=== PATIENT | female | born 1975 | race Two or more races ===

== ENCOUNTER 2020-07-30 14:57 | Outpatient (REF) | payer OTHER, SELFPAY ==
--- NOTE | ~2020-07-30 | MM_ITS ---
EXAMINATION: MM SCREENING DIGITAL BREAST TOMOSYNTHESIS, BILATERAL CLINICAL INFORMATION: Screening. Asymptomatic. No prior breast imaging. Age 44. Family history breast cancer, paternal aunt. The lifetime risk of breast cancer based on the Tyrer-Cuzick Model is 11%. COMPARISON: None (current study represents initial baseline exam). TECHNIQUE: Digital breast tomosynthesis is performed in both the craniocaudal and mediolateral oblique views along with computer-aided detection (CAD). Synthesized 2D images are generated from the tomosynthesis. FINDINGS: There are scattered areas of fibroglandular density (ACR BI-RADS breast composition Category b). There are no significant masses, abnormal calcifications, or other abnormalities. The axilla and skin contours are unremarkable. MM/MM tomosynthesis screening BI IMPRESSION: No mammographic evidence of malignancy. ASSESSMENT: BI-RADS 1: Negative RECOMMENDATION: Routine annual mammography screening. This patient's information was entered into a reminder system with a target due date for their next mammogram.
== END 2020-07-30 14:58 | disposition home or self-care (01) ==
LOC: HO.MAMMO 14:57
PROVIDERS: PCP Family Medicine; Visit Provider Family Medicine
DX: Z12.31 Encounter for screening mammogram for malignant neoplasm of breast (principal)
CPT/HCPCS: 77063; 77067

== ENCOUNTER 2022-12-15 12:51 | Outpatient (REF) | payer OTHER, SELFPAY ==
[2022-12-15 16:14] LABS: Basophils Percent Auto 0.6 % (0-2); Eosinophils Absolute Auto 0.1 X10*3/uL (0.0-0.4); Hematocrit 41.4 % (37.0-47.0); Hemoglobin 13.6 g/dl (12.0-16.0); Imm Gran Abs Auto 0.02 X10*3/uL (0.00-0.03); Imm Gran Pct Auto 0.4 % (0.0-0.4); Lymphocytes Absolute Auto 1.3 X10*3/uL (1.2-4.9); Lymphocytes Percent Auto 24.6 % (20-40); MANUAL DIFF FLAG SCAN; Mean Corpuscular HGB Conc 32.9 g/dl (31.0-35.0); Mean Corpuscular Volume 91.4 fL (80.0-98.0); Mean Platelet Volume 13.4 fL (9.4-12.3); Monocytes Absolute Auto 0.4 X10*3/uL (0.1-1.2); Monocytes Percent Auto 7.8 % (2-11); Neutrophils Absolute Auto 3.4 x10*3/uL (2.0-8.3); Neutrophils Percent Auto 65.6 % (45-73); Platelet Count 142 X10*3/uL (160-400); Red Blood Count 4.53 X10*6/uL (4.20-5.50); Red Cell Distribution Width 12.9 % (11.0-16.0); SCAN SMEAR FLAG 1; White Blood Count 5.1 X10*3/uL (4.8-10.8)
[2022-12-15 16:15] LABS: PLT ABN DIST 1
[2022-12-15 16:29] LABS: Estimated Average Glucose 91 mg/dL; Hemoglobin A1c % 4.8 % (<6.0)
[2022-12-15 17:00] LABS: SLIDE REVIEW VERIFIED
[2022-12-15 17:36] LABS: Alanine Aminotransferase 24 U/L (0-31); Alkaline Phosphatase 56 U/L (39-117); Anion Gap 15 (12-20); Aspartate Amino Transferase 28 U/L (5-31); Bilirubin Direct 0.2 mg/dL (0.0-0.5); Bilirubin Total 0.5 mg/dL (0.0-1.0); Blood Urea Nitrogen 11 mg/dL (9-16); Calcium 10.1 mg/dL (8.4-10.2); Carbon Dioxide 23 mmol/L (22-29); Chloride 105 mmol/L (96-108); Cholesterol 172 mg/dL (<200); Estimated Glomerular Filt Rate > 60; Glucose Random 78 mg/dL (60-115); HDL Cholesterol 55 mg/dL (>40); LDL Cholesterol Calculated 99 mg/dL (<100); Potassium 4.3 mmol/L (3.3-5.1); Sodium 139 mmol/L (135-145); Total Protein 7.9 g/dL (6.5-8.0); Triglycerides 91 mg/dL (<150)
[2022-12-15 17:38] LABS: Free T4 (Free Thyroxine) 0.94 ng/dL (0.71-1.85); Thyroid Stimulating Hormone 1.36 uIU/mL (0.32-4.0); Vitamin D 25-OH Total 39.7 ng/mL (>30)
[2022-12-16 04:09] LABS: Syphilis Screen Nonreactive (Nonreactive)
[2022-12-16 04:11] LABS: HBS Num1 0.18 mIU/mL (0-7.99); HIV AB/AG Nonreactive (Nonreactive); HIV Num 1 0.04 S/CO (0.00-0.99); ~Hepatitis B Surface Antibody NONREACTIVE (Nonreactive); ~Hepatitis C Antibody Nonreactive (Nonreactive)
[2022-12-17 13:54] LABS: Hepatitis B Viral DNA Qn - cp NOT DETECTED Log IU/mL (NOT DETECTED); Hepatitis B Viral DNA Qn-IU/mL NOT DETECTED (NOT DETECTED)
== END 2022-12-15 12:52 | disposition home or self-care (01) ==
LOC: HO.HHCL 12:51
PROVIDERS: Visit Provider Family Medicine
DX: I10 Essential (primary) hypertension (principal)
CPT/HCPCS: 36415; 80048; 80061; 80076; 82306; 83036; 84439; 84443; 85025; 86706; 86780; 86803; 87389; 87517

== ENCOUNTER 2023-01-19 14:15 | Outpatient (REF) | payer OTHER, SELFPAY ==
--- NOTE | ~2023-01-19 | MM_ITS ---
EXAMINATION: MM SCREENING DIGITAL BREAST TOMOSYNTHESIS, BILATERAL CLINICAL INFORMATION: Screening. Asymptomatic. COMPARISON: Mammography: This study is compared with prior exams dating back to 2016. TECHNIQUE: Digital breast tomosynthesis is performed in both the craniocaudal and mediolateral oblique views along with computer-aided detection (CAD). Synthesized 2D images are generated from the tomosynthesis. FINDINGS: There are scattered areas of fibroglandular density (ACR BI-RADS breast composition Category b). There are no significant masses, abnormal calcifications, or other abnormalities. MM/MM tomosynthesis screening BI IMPRESSION: No mammographic evidence of malignancy. ASSESSMENT: BI-RADS BI-RADS 1 - Negative RECOMMENDATION: Routine annual mammography screening. 1 year F/U This examination should not preclude the clinical evaluation of a suspicious palpable abnormality. This patient's information was entered into a reminder system with a target due date for their next mammogram.
== END 2023-01-19 14:16 | disposition home or self-care (01) ==
LOC: HO.MAMMO 14:15
PROVIDERS: PCP Family Medicine; Visit Provider Family Medicine
DX: Z12.31 Encounter for screening mammogram for malignant neoplasm of breast (principal)
CPT/HCPCS: 77063; 77067

== ENCOUNTER → 2023-01-19 14:30 | Outpatient (BNV) | payer OTHER, SELFPAY | PROVIDERS: PCP Family Medicine; Visit Provider Radiology Diagnostic Radiology | DX: Z12.31 Encounter for screening mammogram for malignant neoplasm of breast (principal) | CPT/HCPCS: 77063; 77067 ==

== ENCOUNTER 2023-06-02 10:49 | Outpatient (REF) | payer OTHER, SELFPAY ==
--- NOTE | ~2023-06-02 | XR_ITS ---
STUDY: Bilateral knees INDICATION: Worsening knee pain and giving out COMPARISON: 11/21/2019 TECHNIQUE: 4 views each knee FINDINGS: Right knee: Tricompartment spurring with worsening moderate medial knee and patellofemoral joint narrowings. Small suprapatellar effusion. Left knee: Tricompartment spurring, slight increase moderate medial knee and mild patellofemoral narrowings. Small suprapatellar effusion. XR/XR knee RT 3V IMPRESSION: Osteoarthritis bilateral knees, right greater than left. Bilateral small suprapatellar effusions. No acute bony pathology.
--- NOTE | ~2023-06-02 | XR_ITS ---
STUDY: Bilateral knees INDICATION: Worsening knee pain and giving out COMPARISON: 11/21/2019 TECHNIQUE: 4 views each knee FINDINGS: Right knee: Tricompartment spurring with worsening moderate medial knee and patellofemoral joint narrowings. Small suprapatellar effusion. Left knee: Tricompartment spurring, slight increase moderate medial knee and mild patellofemoral narrowings. Small suprapatellar effusion. XR/XR knee LT 4V IMPRESSION: Osteoarthritis bilateral knees, right greater than left. Bilateral small suprapatellar effusions. No acute bony pathology.
== END 2023-06-02 10:50 | disposition home or self-care (01) ==
LOC: HO.HHCX 10:49
PROVIDERS: Visit Provider Family Medicine
DX: M25.561 Pain in right knee (principal); M25.562 Pain in left knee; G89.29 Other chronic pain
CPT/HCPCS: 73562; 73564

== ENCOUNTER 2023-06-04 20:07 | Emergency (ER) | payer OTHER, SELFPAY ==
[2023-06-04 20:14] VITALS: BP 157/86; PULSE 75; RESP 18; TEMP 36.4; O2SAT 96; BMI 41.1
--- NOTE | 2023-06-04 20:54 | ED.GENADULT ---
HPI - General Adult General Chief complaint: Headache Stated complaint: headache x2 days fatigue Time Seen by Provider: 06/04/23 20:46 Source: patient Mode of arrival: ambulatory Limitations: no limitations History of Present Illness HPI narrative: 47-year-old female history of hypertension who presents emergency department for evaluation of headache, chills, nausea, fatigue and diarrhea x2 days. Patient denies any sick contacts. She states she took Tylenol and ibuprofen without any relief for symptoms. She denied rhinorrhea, sore throat, cough, chest pain, shortness of breath, dyspnea on exertion. Related Data Previous Rx's Medication Instructions Recorded ondansetron 4 mg disintegrating 4 mg PO Q6-8H PRN nausea and 06/04/23 tablet vomiting #14 tabs Allergies Allergy/AdvReac Type Severity Reaction Status Date / Time No Known Allergies Allergy Verified 06/04/23 20:16 [No Known Allergies*] Review of Systems Review of Systems: Yes all other systems are reviewed and are negative [facility] Past Medical History [facility] Narrative: Social history: She denies tobacco, alcohol and drug use Social History Social History Alcohol intake: never Smoked in Last 30 Days: No Use of substances other than those prescribed or required for medical reasons: No Advance Directives: No Advance Directives Information Provided: No Patient : No Physical Exam ED Vital Signs: Vital Signs - 24 hr 06/04/23 20:14 Temperature 97.6 F Pulse Rate 75 Respiratory Rate 18 Blood Pressure 157/86 H Pulse Oximetry 96 Oxygen Delivery Method Room Air BMI result Body Mass Index 41.1 Vital signs did reveal an elevated blood pressure otherwise Exam: General: Awake, alert in no distress Head: Normocephalic, atraumatic EENT: PERRL, Lids normal, sclera normal, conjunctiva normal, nose normal , ears normal, throat without erythema or exudates Neck: Supple, no adenopathy Lung: breath sounds symmetric, no wheezing, rales or rhonchi Chest: symmetric movement, nontender Heart: regular rate and rhythm, normal S1, S2 no murmurs or rubs Abdomen: soft, non-tender, nondistended, normal bowel sounds Back: no vertebral tenderness, no CVAT Extremities: no deformities, moves all extremities symmetrically Neuro: Awake, alert, oriented, normal speech, cranial nerves intact, moves all extremities symmetrically Psych: Pleasant, cooperative Medications Administered Discontinued Medications Generic Name Dose Route Start Last Admin Trade Name Osvaldo PRN Reason Stop Dose Admin Ibuprofen 400 mg 06/04/23 20:54 06/04/23 21:01 Ibuprofen 400 Mg Tablet PO 06/04/23 20:55 400 mg ONCE STA Administration Ondansetron HCl 4 mg 06/04/23 20:54 06/04/23 21:01 Ondansetron Odt 4 Mg Tab.Kevindis TRANSLINGU 06/04/23 20:55 4 mg ONCE STA Administration Medical Decision Making Medical Decision Making MDM Narrative: 47-year-old female history of hypertension who presents emergency department for evaluation of headache, chills, nausea, fatigue and diarrhea x2 days. Patient took Tylenol and ibuprofen not relieve her symptoms. Vital signs did reveal elevated blood pressure otherwise unremarkable. Physical examination was unremarkable as well. Differential diagnosis: ?Includes but is not limited to viral syndrome, pharyngitis, COVID-19, influenza, RSV Following evaluation was ordered: COVID-19, influenza, RSV, rapid strep Patient was initially treated with the following: Zofran 4 mg ODT, Ativan 40 mg orally Course: 21:07 My independent interpretation patient's laboratory evaluation as follows: Influenza, RSV and rapid strep were negative Patient's presentation is consistent with acute viral syndrome. Patient was given prescriptions for Zofran ODT and advised to take Tylenol ibuprofen. She was also advised to stay on a STEVEN diet and increase your fluid intake She was given a work note, printed instructions and discharged Admission/Observation Consideration of admission/observation: Escalation of care including admission/observation considered Lab Data [facility] Lab Attestation statement: I reviewed the patient's lab results. Labs: Lab Results 06/04/23 06/04/23 Range/Units 20:20 20:45 Influenza Type A (PCR) NEGATIVE (Negative) Influenza Type B (PCR) NEGATIVE (Negative) RSV RNA Qual (PCR) NEGATIVE (Negative) SARS-CoV-2 RNA (RT-PCR) NEGATIVE (Negative) S. pyogenes GrpA ALFERDO Negative (Negative) Independent Historian Clinical information obtained from an independent historian. History obtained from or confirmed by: Other (Fiancee) Prescription Management I considered prescription management with: Other (Antiemetic) Discharge Plan Discharge Clinical Impression: Viral syndrome, Nausea Patient Disposition: Home, Self-Care Instructions: Viral Syndrome (ED) Additional Instructions: Your COVID-19, RSV and influenza virus tests were negative Rapid strep test was negative. Your symptoms are consistent with a viral infection. Take Zofran ODT 4 mg pills, 1 pill dissolved in your mouth every 8 hours as needed for nausea and vomiting. Take ibuprofen 200 mg pills, 2 pills every 6 hours as needed for pain or fever. Take Tylenol (acetaminophen) 500 mg pills, 2 pills every 6 hours as needed for pain or fever. Follow-up with your doctor in 2 days. Please return to the emergency department if your symptoms get worse or if you develop any symptoms that are concerning to you. Please see the work note. Prescriptions: New ondansetron 4 mg tablet,disintegrating 4 mg PO Q6-8H PRN (Reason: nausea and vomiting) Qty: 14 0RF Stand Alone Forms: Work/School Release
[2023-06-04 20:57] LABS: IDNOW Serial# 58CA691E; Strep A Nucleic Acid Negative (Negative)
[2023-06-04] MEDS: Ibuprofen 400 MG TABLET PO (21:01)
[2023-06-04] MEDS: Ondansetron ODT 4 MG TAB.RAPDIS TRANSLINGU (21:01)
[2023-06-04 21:03] LABS: Influenza A PCR NEGATIVE (Negative); Influenza B PCR NEGATIVE (Negative); Resp Syncy Virus RNA Qual PCR NEGATIVE (Negative); SARS COV2 PCR INHOUSE NEGATIVE (Negative)
[2023-06-04 21:46] VITALS: BP 131/86; PULSE 65; RESP 20; TEMP 36.5; O2SAT 97
[2023-06-04 21:54] VITALS: BP 131/86; PULSE 65; RESP 20; TEMP 36.5; O2SAT 97
== END 2023-06-04 21:56 | disposition home or self-care (01) ==
PROVIDERS: Physician Assistant Medical; Emergency Provider Emergency Medicine Emergency Medical Services
DX: B34.9 Viral infection, unspecified (principal); R11.0 Nausea; I10 Essential (primary) hypertension; Z03.818 Encounter for observation for suspected exposure to other biological agents ruled out
CPT/HCPCS: 0241U; 87651; 99283; 99284

== ENCOUNTER 2023-06-16 11:20 | Outpatient (REF) | payer OTHER, SELFPAY ==
--- NOTE | ~2023-06-16 | US_ITS ---
EXAMINATION: US PELVIS CLINICAL INFORMATION: Irregular menstrual bleeding. COMPARISON: Pelvic ultrasound 08/21/2012. TECHNIQUE: Ultrasound of the pelvis is performed using both transabdominal and transvaginal transducers along with Doppler. Transvaginal imaging is performed due to inadequate visualization transabdominally. FINDINGS: Uterus: The uterus is anteverted and measures 9.8 x 3.7 x 5.2 cm. The double wall endometrial thickness is 13 mm. There is an endometrial polyp measuring 6 x 6 x 4 mm. On the 08/21/2012 pelvic ultrasound, an 11 x 9 x 10 mm endometrial polyp was seen. The uterus is smooth in contour and has normal myometrial echogenicity. No visible fibroid. Nabothian cysts are present, the largest measuring 0.9 cm. Adnexa: Both ovaries are visualized. There is normal color flow to the adnexa. There is no ovarian torsion. There is no pelvic ascites or fluid collection. Right ovary measures 2.7 x 1.3 x 1.7 cm for a volume of 3.1 mL which includes a 1.2 cm corpus luteal cyst. Left ovary measures 3.5 x 4.3 x 3.9 cm for a volume of 31 mL which includes a complex cyst with septations measuring 3.2 x 3.5 x 3.1 cm. US/US pelvic and transvaginal IMPRESSION: 1. Endometrial polyp as described above. 2. Complex left ovarian cyst. Follow-up ultrasound in 6-12 weeks is recommended.
== END 2023-06-16 11:21 | disposition home or self-care (01) ==
LOC: HO.US 11:20
PROVIDERS: PCP Family Medicine; Visit Provider Family Medicine
DX: N93.9 Abnormal uterine and vaginal bleeding, unspecified (principal)
CPT/HCPCS: 76830; 76856

== ENCOUNTER 2023-06-23 08:47 | Outpatient (AMB) | payer OTHER, SELFPAY ==
[2023-06-23 08:50] VITALS: BMI 41.1
--- NOTE | 2023-06-23 08:50 | MHC.OFFVIS ---
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 The patient describes her pains as severe in nature, /. Her pains have gotten worse over the last few years in spite of continued non operative treatments. She has had multiple cortisone injections. The most recent injection gave her minimal relief. She has also tried Tylenol, anti-inflammatory medicines, massage therapy and a knee brace which gave her only mild relief. She would like to hold off on surgery for as long as possible. She has done physical therapy which aggravated her pain. 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 Physical Exam Vital Signs: BMI result Body Mass Index 41.1 Const Other: Well-nourished well-developed very friendly female awake alert and oriented x3 in no acute distress Extrem Other: Bilateral lower extremity examination shows good capillary refill, no skin lesions noted, normal sensation light touch Bilateral knee examination shows minimal effusions, palpable crepitus with range of motion, pain with range of motion, range of motion from -3 degrees to 115 degrees, no instability Results Reviewed Results Reviewed: X-rays of the patient's bilateral knee show joint space narrowing, subchondral sclerosis, osteophyte formation, no acute bony abnormalities Assessment & Plan Assessment & Plan (1) Arthritis of left knee: Code(s): M17.12 - Unilateral primary osteoarthritis, left knee Category: Medical (2) Arthritis of right knee: Code(s): M17.11 - Unilateral primary osteoarthritis, right knee Category: Medical Plan Ms. Don Hernandez presents with progressively worsening bilateral knee pains due to degenerative joint disease. I had a lengthy discussion with the patient regarding the treatment options. She wishes to hold off on surgery for as long as possible. I agree with plan. She has had cortisone injections in the past which gave her minimal relief. Thus, I will see whether or not the patient's insurance company will cover a viscosupplementation injection for both of her knees. I will see her back once the injections are available. Feel free to call me at any time should questions regarding her orthopedic management arise. I spent 22 minutes in reviewing the patient's records and imaging studies, seeing the patient and documenting in the medical record. Medications: Discontinued ondansetron Discontinued Reason: Patient no longer taking 4 mg PO Q6-8H PRN 14 tabs 0RF nausea and vomiting
== END 2023-06-23 09:27 | disposition home or self-care (01) ==
PROVIDERS: Visit Provider Orthopaedic Surgery
DX: M17.0 Bilateral primary osteoarthritis of knee (principal)
CPT/HCPCS: 99203

== ENCOUNTER → 2023-06-23 08:47 | Outpatient (BNVA) | payer OTHER, SELFPAY | PROVIDERS: Visit Provider Orthopaedic Surgery ==

== ENCOUNTER 2023-06-30 07:54 | Outpatient (AMB) | payer OTHER, SELFPAY ==
--- NOTE | 2023-06-30 08:03 | MHC.OFFVIS ---
Vital Signs 06/30/23 08:06 Height 5 ft 2 in Weight 224 lb 13.944 oz BMI 41.1 BP 105/68 Blood Pressure Location Lt brachial Position Sitting Pulse 67 Intake Visit Reasons: Colonoscopy Screening Intake Note: Martha presents in the office as a colonoscopy screening. CC: She is here because she is due for a colonoscopy. Threat Monitoring Analyst Required: No Allergies No Known Allergies [No Known Allergies*] Allergy (Verified 06/30/23 08:06) Medication List - Last Reconciled 06/30/23 by Erin Sylvester PA-C cholecalciferol (vitamin D3) 50 mcg PO DAILY diclofenac sodium 1% topical hydrochlorothiazide 25 mg PO DAILY lisinopril 5 mg PO DAILY HPI Comments Details: A 47 y/o female referred for index screening colon No family hx- GI cancers No GI complaints Appetite is good BM most days- no issues No resiratory or cardiac- issues No N/V/D-abd pain- fever or chills PFSH Surgical History Hx of section Family History (Updated 06/30/23 @ 08:06 by ABDIAS Darnell) Maternal Grandfather Colon cancer Social History Alcohol intake: never Patient Tobacco Use Status: Never used Tobacco Current occupational status: employed 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, 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 Review of Systems Const All systems reviewed & are unremarkable except as noted in HPI and below Physical Exam Vital Signs: Last Vital Signs Pulse 67 06/30/23 08:06 BP 105/68 06/30/23 08:06 BMI result Body Mass Index 41.1 Const General: cooperative, healthy appearing, comfortable and no acute distress Orientation/consciousness: patient oriented x3 Limitations: no limitations Eyes Sclerae: sclerae normal Resp Effort & Inspection: normal respiratory effort and able to speak in complete sentences Auscultation: clear to auscultation bilaterally, no rales, no rhonchi and no wheezes Cardio Rate: regular rate Rhythm: regular rhythm Heart sounds: S1 normal heart sound present and S2 normal heart sound present GI Inspection: Yes obesity Palpation (GI): Soft to palpation and nontender Auscultation: normal bowel sounds Skin General skin exam: no rashes or lesions noted Neuro General: patient oriented x3 Extrem General: Yes full ROM Psych Appearance: grossly normal and well kempt Mental Status: mental status grossly normal Speech and movement: Normal speech and movement present and Clear speech present Attitude: cooperative Thought process: Normal thought process present Thought content: Normal thought content present Insight: Good insight present (Psych) Judgement: Good judgement present (Psych) Assessment & Plan Assessment & Plan (1) Encounter for screening colonoscopy: Comment: No c/o discussed procedure/ rare risks- anesthesia- need for escort Code(s): Z12. - Encounter for screening for malignant neoplasm of colon Category: Medical Plan: index screen Plan BMI: 41.1kg/m? Orders: Orders Colonoscopy - GI Use Only Today Z12. - Encounter for screening for malignant neoplasm of colon Medications: New bisacodyl (Dulcolax (bisacodyl)) Day before procedure @ 12 noon Take 4 tablets by mouth followed by large glass of water 20 mg (4 x 5 mg) PO ONCE 1 day PRN 4 tabs 0RF colonoscopy prep Z12. - Encounter for screening for malignant neoplasm of colon polyethylene glycol 3350 (Miralax) Take as directed by mouth the day before your procedure. 238 grams PO ONCE 1 day PRN 238 grams 0RF laxative effect Patient Instructions: Pleasant 47 y/o female - age appropriate for index screening colonoscopy discussed procedure/ rare risks- anesthesia- need for escort MG prep- reviewed- literature given Encoraged to call with questions or concerns Coding Level of Care Code New Pt Level 3 (90556) Diagnoses Encounter for screening colonoscopy Z12. Time Spent (min) 20
[2023-06-30 08:06] VITALS: BP 105/68; PULSE 67; BMI 41.1
== END 2023-06-30 09:02 | disposition home or self-care (01) ==
PROVIDERS: PCP Family Medicine; Visit Provider Physician Assistant
DX: Z12.11 Encounter for screening for malignant neoplasm of colon (principal); Z01.818 Encounter for other preprocedural examination
CPT/HCPCS: 99203

== ENCOUNTER → 2023-06-30 07:54 | Outpatient (BNVA) | payer OTHER, SELFPAY | PROVIDERS: PCP Family Medicine; Visit Provider Physician Assistant ==

== ENCOUNTER 2023-07-19 20:32 | Emergency (ER) | payer OTHER, SELFPAY ==
[2023-07-19 20:34] VITALS: BP 148/80; PULSE 69; RESP 18; TEMP 36.8; O2SAT 98; BMI 39.3
--- NOTE | 2023-07-19 20:37 | ED_ITS ---
HPI - General Adult General Chief complaint: General Medical Stated complaint: Hemorroids/burning Time Seen by Provider: 07/20/23 00:36 Source: patient Mode of arrival: ambulatory Limitations: no limitations History of Present Illness HPI narrative: 47 yo female with PMH of HTN and hemorrhoids who notes her hemorrhoids were bothering her no straining they just felt sore so she tried preparation yesterday and now she has burning and pain in the rectal area and she cannot get comfortable no n/v/d no fevers no diarrhea. She has pain and cannot sit. She does not feel a mass. She just notes the skin is very sensitive and painful particularly on the left side. MD complaint: rectal pain Onset (ago): day(s) (1) Location: genitals Radiation: non-radiation Severity: moderate Quality: burning Pain Consistency: constant Relieving factors: none Exacerbating factors: other (sitting or touching the area) Associated symptoms: denies other symptoms Treatments prior to arrival: other (preparation H made it worse) Related Data Home Medications ?Medication ?Instructions ?Recorded ?Confirmed cholecalciferol (vitamin D3) 50 50 mcg PO DAILY 06/23/23 06/30/23 mcg (2,000 unit) capsule hydrochlorothiazide 25 mg tablet 25 mg PO DAILY 06/23/23 06/30/23 lisinopril 5 mg tablet 5 mg PO DAILY 06/23/23 06/30/23 diclofenac sodium 1 % topical gel topical 06/30/23 06/30/23 Previous Rx's ?Medication ?Instructions ?Recorded bisacodyl 5 mg tablet,delayed 20 mg (4 x 5 mg) PO ONCE PRN 06/30/23 release (Dulcolax (bisacodyl)) colonoscopy prep 1 day #4 tabs polyethylene glycol 3350 17 238 g PO ONCE PRN laxative effect 06/30/23 gram/dose oral powder (Miralax) 1 day #238 grams amoxicillin 875 mg-potassium 1 tab PO BID #14 tabs 07/20/23 clavulanate 125 mg tablet hydrocodone 5 mg-acetaminophen 325 1 tab PO Q6H PRN pain #10 tabs 07/20/23 mg tablet Allergies Allergy/AdvReac Type Severity Reaction Status Date / Time No Known Allergies Allergy Verified 07/19/23 20:37 [No Known Allergies*] Review of Systems Review of Systems: Constitutional : No Fever, No Chills, No Fatigue ENT/Mouth : No sore throat, No Rhinorrhea Eyes: No Eye Pain, No Swelling, No Redness Cardiovascular : No Chest Pain, No SOB, No Dyspnea on Exertion Respiratory : No Cough, No Sputum Gastrointestinal : No Nausea, No Vomiting, No Diarrhea, No abdominal Pain, pos rectal pain Genitourinary : No Dysuria, No Urinary Frequency, No Hematuria, Musculoskeletal : No joint pain, No Myalgias, No Joint Swelling Skin : No Skin Lesions, No rash Neuro : No Weakness, No Numbness, No Dizziness, no Headache Psych : No Anxiety/Panic, No Depression Heme/Lymph: No Bruising, No Bleeding,No Lymphadenopathy Endocrine : No Polyuria, No Polydipsia All other systems reviewed and are negative [facility] Past Medical History Attestation statement: The following information was validated with the patient. 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 Oriented X3. No acute distress. Eyes: Pupils equal, round and reactive to light. ENT: Pharynx normal. Neck: Normal inspection. Neck supple. CVS: Normal heart rate and rhythm. Pulses normal. Respiratory: No respiratory distress. Breath sounds normal. Abdomen: Soft and nontender. 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 but she reports pain I do not feel a mass. she is on her menses and there is blood from her vagina due to female pad use. Skin: Skin warm and dry. Normal skin color. Normal skin turgor. Extremities: No lower extremity edema. No calf ttp Neuro: Oriented X 3. No motor deficit. No sensory deficit. Course Course Course Narrative: RmE: Triage done by BEBA Douglass 47-year-old female presents to ED for hemorrhoid rectal/burning pain. Patient denies any blood in his stool or recent trauma. Will be evaluated [facility]. Medications Administered Discontinued Medications Generic Name Dose Route Start Last Admin Trade Name Freq PRN Reason Stop Dose Admin Cephalexin HCl 500 mg 07/20/23 00:51 07/20/23 01:14 Cephalexin 500 Mg Capsule PO 07/20/23 00:52 500 mg ONCE ONE Administration Morphine Sulfate 15 mg 07/20/23 00:51 07/20/23 01:14 Morphine Sulfate Immed Release 15 Mg Tablet PO 07/20/23 00:52 15 mg ONCE ONE Administration Medical Decision Making Medical Decision Making MDM Narrative: 47 yo female with hx of HTN not a diabetic here with rectal burning and pain after using preparation H she is not constipation does not have hard stools she notes her rectal mucosa is very sensitive to touch she has no vesicles no abscess on exam no mass felt no or GI symptoms it is somewhat odd presentation unsure if this is reaction to the preparation H. She is sensitive to light touch but no mass felt - given symptoms would start on medications for proctitis and pain medications. Differential Diagnosis Differential Diagnoses: The differential diagnosis associated with the presentation includes rectal pain, hemorrhoids, proctitis Independent Historian Clinical information obtained from an independent historian. History obtained from or confirmed by: Spouse External Record Review External record reviewed: Office record Prescription Management I considered prescription management with: Pain Medication and Antibiotic Discharge Plan Discharge Clinical Impression: Anal or rectal pain Patient Disposition: Home, Self-Care Instructions: Sitz Bath (DC), Rectal Pain (ED) Additional Instructions: exam did not show engorged hemorrhoids and there was no abscess felt. given pain and degree of sensitivity I am going to start on pain medications and antibiotics in case of inflammation of the rectal area. if worsening symptoms or fevers/pain change in stools please seek immediate attention. Prescriptions: New hydrocodone-acetaminophen 5-325 mg tablet 1 tab PO Q6H PRN (Reason: pain) Qty: 10 0RF Rx Instructions: partial fill okay; Partial Fill upon patient request. amoxicillin-pot clavulanate 875-125 mg tablet 1 tab PO BID Qty: 14 0RF No Action diclofenac sodium 1 % gel topical bisacodyl [Dulcolax (bisacodyl)] 5 mg tablet,delayed release (DR/EC) 20 mg PO ONCE PRN (Reason: colonoscopy prep) 1 Days Qty: 4 0RF Rx Instructions: Day before procedure @ 12 noon Take 4 tablets by mouth followed by large glass of water polyethylene glycol 3350 [Miralax] 17 gram/dose powder 238 g PO ONCE PRN (Reason: laxative effect) 1 Days Qty: 238 0RF Rx Instructions: Take as directed by mouth the day before your procedure. hydrochlorothiazide 25 mg tablet 25 mg PO DAILY lisinopril 5 mg tablet 5 mg PO DAILY cholecalciferol (vitamin D3) 50 mcg (2,000 unit) capsule 50 mcg PO DAILY Stand Alone Forms: Work/School Release Interventions: ED Discharge Assessment Last Done: 07/20/23 01:19 Discharge Date/Time: 07/20/23 01:19 Print Language: [place]
[2023-07-20 00:21] VITALS: BP 126/72; PULSE 79; RESP 17; TEMP 36.3; O2SAT 98
[2023-07-20] MEDS: Morphine Sulfate Immed Release 15 MG TABLET PO (01:14)
[2023-07-20] MEDS: cephALEXin 500 MG CAPSULE PO (01:14)
--- NOTE | 2023-07-20 01:15 | PC.NURSE ---
pt c/o 9/10 pain from rectum. medication administered per provider order. effectiveness pending.
[2023-07-20 01:19] VITALS: BP 126/72; PULSE 79; RESP 17; TEMP 36.3; O2SAT 98
== END 2023-07-20 01:19 | disposition home or self-care (01) ==
PROVIDERS: Emergency Provider Emergency Medicine
DX: K62.89 Other specified diseases of anus and rectum (principal)
CPT/HCPCS: 99283

== ENCOUNTER 2023-08-03 13:19 | Outpatient (AMB) | payer OTHER, SELFPAY ==
[2023-08-03 13:21] VITALS: BMI 39.3
--- NOTE | 2023-08-03 13:21 | A.OFFVIS_ITS ---
Vital Signs 08/03/23 13:21 Height 5 ft 2 in Weight 215 lb BMI 39.3 Intake Visit Reasons: Bilateral Knee Euflexxa #1 Intake Note: Martha is a 47 year old female who presents with complaints of progressively worsening bilateral knee pains. The patient describes her pains as severe in nature, 10/10. Her pains have gotten worse over the last few years in spite of continued non operative treatments. She has had multiple cortisone injections. The most recent injection gave her minimal relief. She has also tried Tylenol, anti-inflammatory medicines, massage therapy and a knee brace which gave her only mild relief. She would like to hold off on surgery for as long as possible. She has done physical therapy which aggravated her pain. Allergies No Known Allergies [No Known Allergies*] Allergy (Verified 08/03/23 13:31) Medication List - Last Reconciled 08/04/23 by Temo Maradiaga MD amoxicillin-pot clavulanate 875-125 mg 1 tab PO BID bisacodyl (Dulcolax (bisacodyl)) 20 mg (4 x 5 mg) PO ONCE PRN 1 day cholecalciferol (vitamin D3) 50 mcg PO DAILY diclofenac sodium 1% topical hydrochlorothiazide 25 mg PO DAILY hydrocodone-acetaminophen 5-325 mg 1 tab PO Q6H PRN lisinopril 5 mg PO DAILY polyethylene glycol 3350 (Miralax) 238 grams PO ONCE PRN 1 day PFSH Medical History (Updated 08/04/23 @ 07:58 by Temo Maradiaga MD) Arthritis of right knee Arthritis of left knee Surgical History Hx of section Family History Maternal Grandfather Colon cancer Social History Alcohol intake: never Patient Tobacco Use Status: Never used Tobacco Current occupational status: employed 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, 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 Physical Exam Vital Signs: BMI result Body Mass Index 39.3 Const Other: Well-nourished well-developed very friendly female awake alert and oriented x3 in no acute distress Extrem Other: Bilateral lower extremity examination shows good capillary refill, no skin lesions noted, normal sensation light touch Bilateral knee examination shows minimal effusions, palpable crepitus with range of motion, pain with range of motion, no instability Office Procedures Joint Injection/Drain Joint Injection/Drain Primary Site: left knee Prep: site was prepped using aseptic technique Injected: 20 mg of (Euflexxa viscosupplementation) and 1% plain lidocaine Procedure: The patient tolerated the procedure well Coding 87302 - Large joint Procedure code (CPT) selection complete Joint Injection/Drain Joint Injection/Drain Primary Site: right knee Prep: site was prepped using aseptic technique Injected: 20 mg of (Euflexxa viscosupplementation) and 1% plain lidocaine Procedure: The patient tolerated the procedure well Coding 00942 - Large joint Procedure code (CPT) selection complete Results Reviewed Results Reviewed: X-rays of the patient's bilateral knee show joint space narrowing, subchondral sclerosis, no acute bony abnormalities Assessment & Plan Assessment & Plan (1) Arthritis of right knee: Code(s): M17.11 - Unilateral primary osteoarthritis, right knee Category: Medical (2) Arthritis of left knee: Code(s): M17.12 - Unilateral primary osteoarthritis, left knee Category: Medical Plan Ms. Don Hernandez presents with bilateral knee pains due to degenerative joint disease. I had a lengthy discussion with the patient regarding the treatment options. She wishes to hold off on surgery for as long as possible. I agree with this plan. The risks and benefits of a series of Euflexxa viscosupplementation injections were discussed at length with the patient. She wished to proceed. She tolerated the bilateral knee injections well. She will continue with her activity modifications. She will follow up next week as scheduled. Feel free to call me at any time should questions regarding her orthopedic management arise. I spent 21 minutes in reviewing the patient's records and imaging studies, seeing the patient and documenting in the medical record. Orders: Orders AMB Joint Injection/Aspiration 08/03/23 Z12.11 - Encounter for screening for malignant neoplasm of colon AMB Joint Injection/Aspiration 08/03/23 M17.11 - Unilateral primary osteoarthritis, right knee Coding Level of Care Code Est Pt Level 3 (48492) Diagnoses Arthritis of right knee M17.11 Arthritis of left knee M17.12 CPT Codes Coding - 14880 Large joint: 37821 - Large joint ([id number]) Coding - 82363 Large joint: 54307 - Large joint ([id number])
== END 2023-08-03 14:02 | disposition home or self-care (01) ==
PROVIDERS: Visit Provider Orthopaedic Surgery
DX: M17.0 Bilateral primary osteoarthritis of knee (principal)
CPT/HCPCS: 20610; 99213

== ENCOUNTER → 2023-08-03 13:19 | Outpatient (BNVA) | payer OTHER, SELFPAY | PROVIDERS: Visit Provider Orthopaedic Surgery | DX: M17.0 Bilateral primary osteoarthritis of knee (principal) | CPT/HCPCS: 20610; J7323 ==

== ENCOUNTER 2023-08-10 14:28 | Outpatient (AMB) | payer OTHER, SELFPAY ==
--- NOTE | 2023-08-10 14:31 | A.OFFVIS_ITS ---
Intake Visit Reasons: Bilateral Knee Euflexxa #2 Intake Note: Martha is a 47 year old female who presents today for her second euflexxa gel injection. Patient has noticed a little relief from the 1st injection. She denies any fevers or chills. 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 Don Hernandez presents with bilateral knee pains due to degenerative joint disease a lengthy discussion with the patient regarding the treatment options. The risks and benefits of a 2nd set of Euflexxa injections were discussed at length with the patient. The patient wished to proceed. She tolerated the injections well. She will continue with her home exercise program. She will follow up next week as scheduled. Feel free to call me at any time should questions regarding her orthopedic management arise. Orders: Orders AMB Joint Injection/Aspiration Today M17.12 - Unilateral primary osteoarthritis, left knee AMB Joint Injection/Aspiration Today M17.11 - Unilateral primary osteoarthritis, right knee Coding Level of Care Code Procedure Only Diagnoses Arthritis of left knee M17.12 Arthritis of right knee M17.11
== END 2023-08-10 15:01 | disposition home or self-care (01) ==
PROVIDERS: Visit Provider Orthopaedic Surgery
DX: M17.0 Bilateral primary osteoarthritis of knee (principal)
CPT/HCPCS: 20610

== ENCOUNTER → 2023-08-10 14:28 | Outpatient (BNVA) | payer OTHER, SELFPAY | PROVIDERS: Visit Provider Orthopaedic Surgery | DX: M17.0 Bilateral primary osteoarthritis of knee (principal) | CPT/HCPCS: 20610; J7323 ==

== ENCOUNTER 2023-08-17 14:14 | Outpatient (AMB) | payer OTHER, SELFPAY ==
--- NOTE | 2023-08-17 14:15 | MHC.OFFVIS ---
Vital Signs 08/17/23 14:17 Height 5 ft 2 in Weight 215 lb BMI 39.3 Intake Visit Reasons: Bilateral Knee Euflexxa #3 Intake Note: Martha is a 47 year old female who presents today for her third Bilateral Knee Euflexxa #3. She states that she has gotten mild relief from the 1st 2 injections. She denies any fevers or chills. Allergies No Known Allergies [No Known Allergies*] Allergy (Verified 08/17/23 14:18) Medication List - Last Reconciled 08/18/23 by Temo Maradiaga MD cholecalciferol (vitamin D3) 50 mcg PO DAILY diclofenac sodium 1% topical hydrochlorothiazide 25 mg PO DAILY hydrocodone-acetaminophen 5-325 mg 1 tab PO Q6H PRN lisinopril 5 mg PO DAILY PFSH Medical History Arthritis of right knee Arthritis of left knee Surgical History Hx of section Family History Maternal Grandfather Colon cancer Social History Alcohol intake: never Patient Tobacco Use Status: Never used Tobacco Current occupational status: employed 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, 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 Physical Exam Vital Signs: BMI result Body Mass Index 39.3 Extrem Other: Bilateral knee examination shows minimal effusions, palpable crepitus with range of motion, pain with range of motion, no instability Office Procedures Joint Injection/Drain Joint Injection/Drain Primary Site: left knee Prep: site was prepped using aseptic technique Injected: 20 mg of (Euflexxa viscosupplementation) and 1% plain lidocaine Procedure: The patient tolerated the procedure well Coding 30121 - Large joint Procedure code (CPT) selection complete Joint Injection/Drain Joint Injection/Drain Primary Site: right knee Prep: site was prepped using aseptic technique Injected: 20 mg of (Euflexxa viscosupplementation) and 1% plain lidocaine Procedure: The patient tolerated the procedure well Coding 56348 - Large joint Procedure code (CPT) selection complete Results Reviewed Results Reviewed: X-rays of the patient's bilateral knee show joint space narrowing, subchondral sclerosis, no acute bony abnormalities Assessment & Plan Assessment & Plan (1) Arthritis of left knee: Code(s): M17.12 - Unilateral primary osteoarthritis, left knee Category: Medical (2) Arthritis of right knee: Code(s): M17.11 - Unilateral primary osteoarthritis, right knee Category: Medical Plan Ms. Vinicius Hernandez presents with bilateral knee pains due to degenerative joint disease. The risks and benefits of a 3rd set of Euflexxa viscosupplementation injections were discussed at length with the patient. The patient wished to proceed. She tolerated the injections well. She will continue with her home exercise program. She will follow up with me on an as-needed basis should her symptoms not plateau at an unacceptable level over the next few months. Feel free to call me at any time should questions regarding her orthopedic management arise. I spent 20 minutes in reviewing the patient's records and imaging studies, seeing the patient and documenting in the medical record. Orders: Orders AMB Joint Injection/Aspiration 08/17/23 M17.12 - Unilateral primary osteoarthritis, left knee AMB Joint Injection/Aspiration 08/17/23 M17.11 - Unilateral primary osteoarthritis, right knee Coding Level of Care Code Procedure Only Diagnoses Arthritis of left knee M17.12 Arthritis of right knee M17.11 CPT Codes Coding - 21149 Large joint: 68079 - Large joint ([id number]) Coding - 64385 Large joint: 94566 - Large joint ([id number])
[2023-08-17 14:17] VITALS: BMI 39.3
== END 2023-08-17 14:56 | disposition home or self-care (01) ==
PROVIDERS: Visit Provider Orthopaedic Surgery
DX: M17.0 Bilateral primary osteoarthritis of knee (principal)
CPT/HCPCS: 20610

== ENCOUNTER → 2023-08-17 14:14 | Outpatient (BNVA) | payer OTHER, SELFPAY | PROVIDERS: Visit Provider Orthopaedic Surgery | DX: M17.0 Bilateral primary osteoarthritis of knee (principal) | CPT/HCPCS: 20610; J7323 ==

== ENCOUNTER 2023-10-20 11:02 | Outpatient (REF) | payer OTHER, SELFPAY ==
--- NOTE | ~2023-10-20 | US_ITS ---
EXAMINATION: US PELVIS CLINICAL INFORMATION: Follow-up complex left ovarian cyst. COMPARISON: None available. TECHNIQUE: Ultrasound of the pelvis is performed using both transabdominal and transvaginal transducers along with Doppler. Transvaginal imaging is performed due to inadequate visualization transabdominally. FINDINGS: Uterus: The uterus is anteverted and measures 9.3 x 4.9 x 6.2 cm. Complex nabothian cysts are present. The double wall endometrial thickness is 16 mm. An endometrial polyp is present measuring 6.4 x 5 mm (previously 6 x 6.4 mm). The uterus is smooth in contour and has normal myometrial echogenicity. No visible fibroid. Adnexa: Both ovaries are visualized. There is normal color flow to the adnexa. There is no ovarian torsion. There is no pelvic ascites or fluid collection. Right ovary measures 3.3 x 2.6 x 2.3 cm for a volume of 10.3 mL and contains a corpus luteal cyst measuring 1.7 cm. Left ovary measures 3.8 x 2.6 x 1.4 cm for a volume of 7.2 mL which includes a 1 cm benign-appearing cyst. The previously seen 3.5 cm complex left ovarian cyst has resolved. US/US pelvic and transvaginal IMPRESSION: 1. Resolved complex left ovarian cyst. 2. Small endometrial polyp. Electronically signed by: Deo Sims MD 11/10/2023 09:58 PM EDT
== END 2023-10-20 11:03 | disposition home or self-care (01) ==
LOC: HO.US 11:02
PROVIDERS: PCP Family Medicine; Visit Provider Family Medicine
DX: N83.202 Unspecified ovarian cyst, left side (principal)
CPT/HCPCS: 76830; 76856

== ENCOUNTER 2023-11-17 14:16 | Outpatient (AMB) | payer OTHER, SELFPAY ==
[2023-11-17 14:19] VITALS: BMI 39.3
--- NOTE | 2023-11-17 14:19 | A.OFFVIS_ITS ---
Vital Signs 11/17/23 14:19 Height 5 ft 2 in Weight 215 lb BMI 39.3 Intake Visit Reasons: OV-B/L knee injection follow up Intake Note: Martha is a 48 year old female who presents with complaints of mild intermittent discomfort in both of her knees after undergoing a series of Euflexxa viscosupplementation injections for both of her knees earlier this year. She does not take any medicines for discomfort. She continues with her home exercise program. She denies any locking or giving way. Allergies No Known Allergies [No Known Allergies*] Allergy (Verified 11/17/23 14:22) Medication List - Last Reconciled 11/17/23 by Temo Maradiaga MD cholecalciferol (vitamin D3) 50 mcg PO DAILY diclofenac sodium 1% topical hydrochlorothiazide 25 mg PO DAILY hydrocodone-acetaminophen 5-325 mg 1 tab PO Q6H PRN lisinopril 5 mg PO DAILY PFSH Medical History Arthritis of right knee Arthritis of left knee Surgical History Hx of section Family History Maternal Grandfather Colon cancer Social History Alcohol intake: never Patient Tobacco Use Status: Never used Tobacco Current occupational status: employed 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, 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 Physical Exam Vital Signs: BMI result Body Mass Index 39.3 Const Other: Well-nourished well-developed very friendly female awake alert and oriented x3 in no acute distress Extrem Other: Bilateral lower extremity examination shows good capillary refill, no skin lesions noted, normal sensation light touch Bilateral knee examination shows minimal effusions, mild crepitus with range of motion, minimal discomfort with range of motion, no instability Assessment & Plan Assessment & Plan (1) Arthritis of left knee: Code(s): M17.12 - Unilateral primary osteoarthritis, left knee Category: Medical (2) Arthritis of right knee: Code(s): M17.11 - Unilateral primary osteoarthritis, right knee Category: Medical Plan Ms. Don Hernandez presents with intermittent discomfort in both of her knees due to degenerative joint disease. I had a lengthy discussion with the patient regarding the treatment options. At this point the patient's symptoms are tolerable to her. She will continue with her home exercise program. She will follow up with me on an as-needed basis should her symptoms worsen in any way. Feel free to call me at any time should questions regarding her orthopedic management arise. I spent 22 minutes in reviewing the patient's records and imaging studies, seeing the patient and documenting in the medical record. Coding Level of Care Code Est Pt Level 3 (94503) Complex EM visit Add On G2211 Diagnoses Arthritis of left knee M17.12 Arthritis of right knee M17.11
== END 2023-11-17 14:55 | disposition home or self-care (01) ==
PROVIDERS: Visit Provider Orthopaedic Surgery
DX: M17.0 Bilateral primary osteoarthritis of knee (principal)
CPT/HCPCS: 99213

== ENCOUNTER → 2023-11-17 14:16 | Outpatient (BNVA) | payer OTHER, SELFPAY | PROVIDERS: Visit Provider Orthopaedic Surgery ==

== ENCOUNTER 2024-05-09 14:43 | Outpatient (AMB) | payer OTHER, SELFPAY ==
[2024-05-09 14:50] VITALS: BMI 41.1
--- NOTE | 2024-05-09 14:50 | MHC.OFFVIS ---
Vital Signs 05/09/24 14:50 Height 5 ft 2 in Weight 225 lb BMI 41.1 Intake Visit Reasons: Bilateral knee pain Intake Note: Martha is a 48 year old female who presents with complaints of progressively worsening bilateral knee pains. She describes her pains as sharp in nature. Her pains have gotten worse over the last 3 months in spite of continued non operative treatments. She has had cortisone injections in the past which gave her minimal relief. She has also had Euflexxa injections which gave her fairly good relief. She has done physical therapy exercises which aggravated her pain. She has also tried Tylenol and anti-inflammatory medicines which gave her minimal relief. Allergies No Known Allergies [No Known Allergies*] Allergy (Verified 05/09/24 14:50) Medication List - Last Reconciled 05/09/24 by Temo Maradiaga MD cholecalciferol (vitamin D3) 50 mcg PO DAILY diclofenac sodium 1% 1 ea topical DAILY hydrochlorothiazide 25 mg PO DAILY lisinopril 5 mg PO DAILY PFSH Medical History Arthritis of right knee Arthritis of left knee Surgical History Hx of section Family History Maternal Grandfather Colon cancer Social History (Reviewed 08/17/23 @ 14:44 by Amy Siegel, [facility]) Alcohol intake: never Patient Tobacco Use Status: Never used Tobacco Current occupational status: employed 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, 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 Physical Exam Vital Signs: BMI result Body Mass Index 41.1 Const Other: Well-nourished well-developed very friendly female awake alert and oriented x3 in no acute distress Extrem Other: Bilateral lower extremity examination shows good capillary refill, no skin lesions noted, normal sensation light touch Bilateral knee examination shows minimal effusions, palpable crepitus with range of motion, pain with range of motion, no instability Office Procedures AMB Joint Injection/Aspiration Joint Injection/Aspiration Primary Site: left knee Prep: site was prepped using aseptic technique Injected: 20 mg of (Euflexxa viscosupplementation) and 1% plain lidocaine Procedure: The patient tolerated the procedure well Coding 32487 - Large joint Procedure code (CPT) selection complete AMB Joint Injection/Aspiration Joint Injection/Aspiration Primary Site: right knee Prep: site was prepped using aseptic technique Injected: 20 mg of (Euflexxa viscosupplementation) and 1% plain lidocaine Procedure: The patient tolerated the procedure well Coding - Large joint Procedure code (CPT) selection complete Results Reviewed Results Reviewed: X-rays of the patient's bilateral knees taken previously show joint space narrowing, subchondral sclerosis, no acute bony abnormalities Assessment & Plan Assessment & Plan (1) Osteoarthritis of left knee: Code(s): M17.12 - Unilateral primary osteoarthritis, left knee Category: Medical (2) Osteoarthritis of right knee: Code(s): M17.11 - Unilateral primary osteoarthritis, right knee Category: Medical (3) Pain in both knees: Code(s): M25.561 - Pain in right knee; M25.562 - Pain in left knee Plan Martha presents with bilateral knee pains due to osteoarthritis. The risks and benefits of a series of bilateral knee Euflexxa injections were discussed at length with the patient. The patient wished to proceed. She tolerated the 1st set of injections well. She will continue with her home exercise program. She will follow up next week as scheduled. Feel free to call me at any time should questions regarding her orthopedic management arise. I spent 22 minutes in reviewing the patient's records and imaging studies, seeing the patient and documenting in the medical record. Orders: Orders AMB Joint Injection/Aspiration Today M17.12 - Unilateral primary osteoarthritis, left knee AMB Joint Injection/Aspiration Today M17.11 - Unilateral primary osteoarthritis, right knee Coding Level of Care Code Est Pt Level 3 (40275) Complex EM visit Add On G2211 Diagnoses Osteoarthritis of left knee M17.12 Osteoarthritis of right knee M17.11 Pain in both knees M25.561; M25.562 CPT Codes Coding - 43852 Large joint: 94217 - Large joint ([id number]) Coding - 44302 Large joint: 51639 - Large joint ([id number])
--- OUTSIDE RECORDS SUMMARY | 2024-05-09 17:47 | XMS_ITS | Clinical Summary ---
Author Organization [employer] Address [address] [place] [address] Care Team Providers Care Senior Financial Name Role Phone Charity Avila Primary Care Provider [phone] Allergies No known active allergies Medications baclofen (Lioresal) 10 MG tablet Take 1 tablet (10 mg) by mouth if needed in the morning, at noon, and at bedtime for muscle spasms. 60 tablet 1 06/02/19 24 Active Diclofenac Sodium 1 % gel Apply 2 g topically if needed in the morning, at noon, in the evening, and at bedtime (pain). 150 g 3 06/02/19 24 Active [facility] Gentle Laxative 5 MG EC tablet Take 5 mg by mouth if needed each day for constipation. 06/30/19 24 Active witch flora-glycerin (Tucks) pad Apply topically if needed for irritation. 200 each 2 08/02/19 24 Active hydrocortisone (Proctosol HC) 2.5 % rectal cream Insert into the rectum if needed in the morning and at bedtime for hemorrhoids. 28 g 2 08/02/19 24 Active cholecalciferol VITAMIN D (Vitamin D-3) 50 MCG (1999) capsuleIndicati ons:Vitamin D deficiency TAKE 1 CAPSULE BY MOUTH EVERY DAY 90 capsule 1 12/30/19 24 Active naproxen (Naprosyn) 500 MG tablet TAKE 1 TABLET (500 MG) BY MOUTH IN THE MORNING AND AT BEDTIME NEEDED FOR MILD PAIN 30 tablet 1 04/30/19 25 Active lisinopril 5 MG tabletIndicatio ns:Hypertension , unspecified type TAKE 1 TABLET BY MOUTH EVERY DAY 90 tablet 1 05/03/19 25 Active hydroCHLOROthia zide 12.5 MG tabletIndicatio ns:Hypertension , unspecified type TAKE 1 TABLET BY MOUTH EVERY DAY IN THE MORNING 90 tablet 1 05/03/19 25 Active lisinopril 5 MG tabletIndicatio ns:Hypertension , unspecified type TAKE 1 TABLET BY MOUTH EVERY DAY 90 tablet 1 09/28/19 24 025 Discontinued hydroCHLOROthia zide 12.5 MG tabletIndicatio ns:Hypertension , unspecified type TAKE 1 TABLET BY MOUTH EVERY DAY IN THE MORNING 90 tablet 1 11/01/19 24 025 Discontinued naproxen (Naprosyn) 500 MG tablet TAKE 1 TABLET (500 MG) BY MOUTH IN THE MORNING AND AT BEDTIME NEEDED FOR MILD PAIN 30 tablet 1 12/30/19 24 025 Discontinued Active Problems Problem Noted Date Diagnosed Date Healthcare maintenance 06/02/2023 Assessment & Plan (06/02/2023 10:45 AM EDT): -she declines flu vaccine -she declines COVID vaccine -s/p Tdap OCT 2021 -pap wnl/HPV negative OCT 2021 -mammo BIRADS 05 JAN 2023 -colonoscopy eval next mos -fasting labs wnl DEC 2022 -STI/HIV screening negative DEC 2022 Chronic pain of both knees 06/02/2023 Assessment & Plan (06/02/2023 10:44 AM EDT): Probable OA -provided reassurance -referred for knee XR -trial tylenol prn -change advil to naprosyn prn -trial diclofenac gel prn -cont ice therapy -referred to ortho for eval Abnormal uterine bleeding (AUB) 06/02/2023 Assessment & Plan (06/02/2023 10:43 AM EDT): Likely perimenopausal changes, sx improved since last visit -re-referred for pelvic US -consider 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 I lowered her hydrochlorothiazide to 12.5 mainly due to POS sxs, and encouraged her to continue losing weight (has lost 14 lb in the past 2mo), she will continue lisinopril 5mg and fu with her PCP as scheduled. I told her to increase water intake if she continues to have rectal bleeding (it seems to have slowed down since ED visit). Assessment & Plan (06/02/2023 10:42 AM EDT): BP slightly-elevated, usually well-controlled -restart HCTZ and lisinopril daily -cont home BP monitoring -Cr/GFR nml DEC 2022 and urine microalbumin wnl FEB 2020 -referred to [facility] optho for eval Resolved Problems Problem Noted Date Diagnosed Date Resolved Date Dizziness 07/26/2023 08/02/2023 Chronic pelvic pain in female 04/04/2018 04/16/2022 Morbid obesity 04/30/2015 08/02/2023 Encounters Date Type Department Care Team Description 05/03/2024 Refill [facility] MEDICINE [address] [place] [address] Charity Avila DO Hypertension, unspecified type 04/29/2024 Refill [facility] MEDICINE [address] [place] [address] Charity Avila DO 02/09/2024 10:30 AM EST Office Visit [facility] OPTOMETRY [address] [place] [address] Concepción White, OD Encounter for examination of eyes and vision with abnormal findings (Primary Dx); White without pressure of peripheral retina of both eyes; Presbyopia 02/09/2024 Travel from Last 3 Months Immunizations Name Administration Dates Next Due Influenza injectable quadriv alent IIV4 with preservative 12/20/2019 Influenza, IIV3, injectable 01/01/2010 Influenza, Split (incl. phuong fied surface antigen) 02/12/2013 Influenza, live, intranasal 12/22/2011 Moderna Covid-19 Vaccine 12+ 04/10/2021,10/24/19 21,09/25/2020 TD (adult), 2 Lf tetanus tox oid, preservative free, adsorbed 10/27/2006 Tdap 10/30/2021 Family History Medical History Relation Name Comments Alcohol abuse Father Liver disease Father Breast cancer Father's Sister Colon cancer Maternal Grandfather Diabetes Maternal Grandfather Asthma Mother Hypertension Mother Hypertension Sister Relation Name Status Comments Father Father's Sister Maternal Grandfather Mother Sister Social History Tobacco Use Types Packs/Day Years Used Date Smoking Tobacco: Former Cigarettes Q uit: 04/15/2017 Passive Smoke Exposure: Never Smokeless Tobacco: Never Tobacco Cessation:Counseling Given: Not Answered Alcohol Use Standard Drinks/Week Comments Not Currently 0 (1 standard drink = 0.6 oz pur e alcohol) Depression Answer Date Recorded Patient Health Questionnaire-9 Score 10 06/02/2023 Patient Health Questionnaire-9 Score 10 06/02/2023 Last PHQ-9: Questionnaire Data Not on file 0 06/02/2023 Housing Stability Answer Date Recorded What is your housing situation today? I have elana bassett 01/05/[address] you li ve. Do you have problems with any of the following? None of the above 01/05/2024 Food Insecurity Answer Date Recorded Within the past 12 months, y ou worried that your food would run out before you got money to buy more: Never True 06/02/2023 Within the past 12 months,th e food you bought just didn't last and you didn't have enough money to get more: Never True Transportation Answer Date Recorded In the past 12 months, has l ack of transportation kept you from medical appts, meetings, work or from getting things needed for daily living? No 06/02/2023 Utilities Answer Date Recorded In the past 12 months, has t he electric, gas, oil or water company threatened to shut off services in your home? No 06/02/2023 Depression Answer Date Recorded Patient Health Questionnaire-2 Score 3 06/02/2023 Internet Access Answer Date Recorded Internet Access Q1 Yes 01/05/2024 Internet Access Q2 Not on file 01/05/2024 Comments Unknown Sex and Gender Information Value Date Recorded Sex Assigned at Female 01/04/2022 10:16 AM EDT Legal Sex Female 10:16 AM EDT Gender Identity Female 01/04/2022 10:16 AM EDT Sexual Orientation Straight 01/04/2022 10 :16 AM EDT Last Filed Vital Signs Vital Sign Reading Time Taken Comments Blood Pressure 124/83 08/02/2023 12:26 PM EDT Pulse 71 08/02/2023 12:26 PM EDT Temperature 36.4 ??C (97.6 ??F) 08/02/2023 12:26 PM E DT Respiratory Rate 17 08/02/2023 12:26 PM EDT Oxygen Saturation 98% 08/02/2023 12:26 PM EDT Inhaled Oxygen Concentration - - Weight 97.1 kg (214 lb) 08/02/2023 12:26 PM EDT Height 157.5 cm (5' 2 ) 08/02/2023 12:26 PM EDT Body Mass Index 39.14 08/02/2023 12:26 PM EDT Plan of Treatment Health Maintenance Due Date Last Done Comments CT Colonography 1975 Colonoscopy 1975 Colorectal Cancer Screening 1975 FIT DNA/Cologuard 1976 FIT 1975 FOBT 1975 Sigmoidoscopy 1976 Alcohol/Substance Use Screening 1988 Family Planning (PISQ) 08/19/1991 Hepatitis B Vaccines (1 of 3 - 19+ 3-dose series) 08/19/1995 COVID-19 Vaccine ( season) 2023 04/10/2021, 10/23/2020, 09/25/2020 Influenza Vaccine (#1) 2023 , 02/12/2013, 12/22/2011, Additional history exists Depression Monitoring (PHQ-9) 12/03/2023 06/02/2023, 06/02/2023 Depression Screening 06/01/2024 06/02/2023, 06/02/19 24 Pap Smear 10/30/2024 10/30/2021 SDOH Screening 01/04/2025 01/05/2024 Mammogram 01/19/2025 01/19/2023, 07/30/2020 Tobacco Screening 02/08/2025 02/09/2024 Zoster Vaccines (1 of 2) 2026 Cervical Cancer Screening 10/30/2026 HPV/Cotest 10/30/2026 10/30/2021 Lipid Panel 12/16/2027 12/15/2022, 10/06, 02/18/2020 DTaP/Tdap/Td Vaccines (2 - Td or Tdap) 10/31/2031 10/30/2021, 10/27/2006 RSV Patients and Patients Aged 60 years or older (1 - 1-dose 75+ series) 08/19/2051 HIV Screening Completed 12/15/2022, 10/06, 02/18/2020, Additional history exists Hepatitis C Screening Completed 12/15/2022 , 10/30/2021, 02/18/2020, Additional history exists HIB Vaccines Aged Out No longer eligi ble based on patient's age to complete this topic HPV Vaccines Aged Out No longer eligi ble based on patient's age to complete this topic Hepatitis A Vaccines Aged Out No long er eligible based on patient's age to complete this topic IPV Vaccines Aged Out No longer eligi ble based on patient's age to complete this topic Meningococcal Vaccine Aged Out No consuelo katlyn eligible based on patient's age to complete this topic Pneumococcal Vaccine: Pediatrics (0 to 5 Years) and At-Risk Patients (6 to 49) Years) Aged Out No longer eligible based on patient's age to complete this topic RSV under 20 months Aged Out No longe r eligible based on patient's age to complete this topic Rotavirus Vaccines Aged Out No longer eligible based on patient's age to complete this topic Procedures Procedure Name Priority Date/Time Associated Diagnosis Comments BI MAMMOGRAM SCREENING TOMOSYNTHESIS BILATERAL Routine 01/19/2023 2:40 PM EST HEPATITIS C AB W/REFL TO HCV RNA, QN, PCR Routine 12/15/2022 12:57 PM EDT HIV ANTIBODY/ANTIGEN ([place] DPH) Routine 12/15/2022 12:57 PM EDT LIPID PANEL, STANDARD Routine 12/15/2022 12:57 PM EDT Essential hypertension HPV MRNA E6/E7 REFLEX TO HPV 16, 18/45 Routine 10/30/2021 9:58 AM EDT THINPREP IMAGING SYSTEM PAP Routine 10/30/2021 9:58 AM EDT from Last 3 Months or Most Recently Relevant to Health Maintenance Results * BI Mammogram Screening Tomosynthesis Bilateral (01/19/2023 2:40 PM EST) Anatomical Region Laterality Modality Breast Bilateral Mammography 01/19/2023 2:40 PM EST Narrative 02/04/2023 8:30 AM EST ? [facility] ? [address] ?[place] [address] ? Mammography Report ? Signed ? Patient: Martha Novoa E ?MR#: [id number] ?? 134 ? : 1975 ?Acct:[id number] ? Age/Sex: 47 / F ?ADM Date: 01/19/23 ? Loc: HO.MAMMO ? Attending Dr: Charity Avila DO ? Ordering Physician: Charity Avila DO ?Results: 1N ?? egative ? Date of Service: 01/19/23 ?Follow Up: 1 Year From Orig ?? inal Mammogram ? Procedure(s): MM tomosynthesis screening BI ?? Accession Number(s): [id number] ? cc: Charity Avila DO ? EXAMINATION: ?? MM SCREENING DIGITAL BREAST TOMOSYNTHESIS, BILATERAL ? CLINICAL INFORMATION: ? Screening. Asymptomatic. ? COMPARISON: ?? Mammography: This study is compared with prior exams dating back to ?? 2015. ? TECHNIQUE: ?? Digital breast tomosynthesis is performed in both the craniocaudal and ?? mediolateral oblique views along with computer-aided detection (CAD). ?? Synthesized 2D images are generated from the tomosynthesis. ? FINDINGS: ?? There are scattered areas of fibroglandular density (ACR BI-RADS breast ?? composition Category b). ? There are no significant masses, abnormal calcifications, or other ?? abnormalities. ? MM/MM tomosynthesis screening BI ?? IMPRESSION: ?? No mammographic evidence of malignancy. ? ASSESSMENT: ? BI-RADS BI-RADS 1 - Negative ? RECOMMENDATION: ?? Routine annual mammography screening. ? 1 year F/U ? This examination should not preclude the clinical evaluation of a ?? suspicious palpable abnormality. ? This patient's information was entered into a reminder system with a ?? target due date for their next mammogram. ? Dictated By: ?Sharmila Jacobo MD ? Signed By: ?<Electronically signed by Sharmila Jacobo MD in OV> ? 02/04/23 0827 ? DD/ 1440 ? TD/TT: ? [employer] Iam Consultant: ? Procedure Note Kinga, Image - 02/04/2023 [facility] [address] [place] [address] Mammography Report Signed Patient: Martha Novoa EMR#: [id number] 134 : 1975Acct:[id number] Age/Sex: 47 / FADM Date: 01/19/23 Loc: SHERRI.KATIAO Attending Dr: Charity Avila DO Ordering Physician: Charity Avilaults: 1N egative Date of Service: 01/19/23Follow Up: 1 Year From Orig inal Mammogram Procedure(s): MM tomosynthesis screening BI Accession Number(s): [id number] cc: Charity Avila DO EXAMINATION: MM SCREENING DIGITAL BREAST TOMOSYNTHESIS, BILATERAL CLINICAL INFORMATION: Screening. Asymptomatic. COMPARISON: Mammography: This study is compared with prior exams dating back to 2016. TECHNIQUE: Digital breast tomosynthesis is performed in both the craniocaudal and mediolateral oblique views along with computer-aided detection (CAD). Synthesized 2D images are generated from the tomosynthesis. FINDINGS: There are scattered areas of fibroglandular density (ACR BI-RADS breast composition Category b). There are no significant masses, abnormal calcifications, or other abnormalities. MM/MM tomosynthesis screening BI IMPRESSION: No mammographic evidence of malignancy. ASSESSMENT: BI-RADS BI-RADS 1 - Negative RECOMMENDATION: Routine annual mammography screening. 1 year F/U This examination should not preclude the clinical evaluation of a suspicious palpable abnormality. This patient's information was entered into a reminder system with a target due date for their next mammogram. Dictated By: Sharmila Jacobo MD Signed By: <Electronically signed by Sharmila Jacobo MD in OV> 02/04/23 0827 DD/ 1440 TD/TT: [employer] Iam Consultant: us Charity Avila DO IMG BI PROCEDURES Final Resu lt * HIV Ab/Ag ([place] DPH) (12/15/2022 12:57 PM EDT) HIV AB/AG Nonreactive Nonreactive [facility] Comment:HIV-1 p24 Ag and/or HIV-1/HIV-2 Ab not detected.A test result that is nonreactive does not exclude thepossibility of exposure to or infection with HIV-1 and/orHIV-2. Nonreactive results in this assay for individualswith prior exposure to HIV-1 and/or HIV-2 may be due toantigen and antibody levels that are below the limit ofdetection of this assay.The [employer] HIV Ag/Ab Combo assay result andsupplemental assay results should be interpreted inconjunction with the patient's clinical presentation,history and other laboratory results. If the results areinconsistent with clinical evidence, additional testing issuggested to confirm the result. 12/15/2022 12:5 7 PM EDT 12/15/2022 3:58 PM EDT Charity Floresmangojanny DO LAB BLOOD ORDERABLES Final R esult Performing Organization Address City/[facility] Co de Phone Number [facility] [address] [place] [phone] * Hepatitis C Antibody with Reflex to HCV, RNA, Quantitative, Real-Time PCR (12/15/2022 12:57 PM EDT) Hepatitis C Antibody Nonreactive Nonreactive [facility] Comment:Antibodies to HCV no t detected; does not exclude early acuteHCV infection. 12/15/2022 12:5 7 PM EDT 12/15/2022 3:58 PM EDT Charity Margarita LAB BLOOD ORDERABLES Final R esult Performing Organization Address City/[facility] Co de Phone Number [facility] [address] [place] [phone] * Lipid Panel, Standard (12/15/2022 12:57 PM EDT) Triglycerides 91 <150 mg/dL [facility] Comment:Desirable Triglyceri de: less than 150 mg/dLBorderline High Triglyceride 150-199 mg/dLHigh Triglyceride: 200-499 mg/dLVery High Triglyceride: greater than or equal to 5OO mg/dL Cholesterol 172 <200 mg/dL [facility] Comment:Desirable Cholestero l: less than 200 mg/dLBorderline High Cholesterol: 200-239 mg/dLHigh Cholesterol: greater than 239 mg/dL LDL Cholesterol Calculated 99 <100 mg/dL [facility] Comment:Desirable LDL: less than 100 mg/dLNear Optimal/Above Optimal LDL: 110- 129 mg/dLBorderline High LDL: 130-159 mg/dLHigh LDL: 160-189 mg/dLVery High LDL: greater than or equal to 190 mg/dL HDL Cholesterol 55 >40 mg/dL [facility] Comment:Desirable HDL: great er than 40 mg/dL Note: This HDL assay may give artificially low results in patients with liver disease. Blood Venous blood specimen / Unknown 12/15/2022 12:57 PM EDT 12/15/2022 3:58 PM EDT us Charity Avila DO LAB BLOOD ORDERABLES Final R esult Performing Organization Address [facility]/ZIP Co de Phone Number [facility] [address] [place] [phone] * THINPREP TIS PAP (10/30/2021 9:58 AM EDT) Clinical Information: None given [facility] COMMENT SEE COMMENT [facility] Comment: EXPLANATORY NOTE: ? The Pap is a screening test for cervical cancer. It is ?? not a diagnostic test and is subject to false negative ?? and false positive results. It is most reliable when a ?? satisfactory sample, regularly obtained, is submitted ?? with relevant clinical findings and history, and when ?? the Pap result is evaluated along with historic and ?? current clinical information. ?? COMMENT: This Pap test has been evaluated with computer assisted technology. [facility] Network Security Architect : SEE COMMENT [facility] Comment: [facility], CT(ASCP) CT screening location: [address] ??[address] Infection Shift in vaginal esthela suggestive of bacterial vaginosis. [facility] Interpretation/R esult: Negative for intraepithelial lesion or malignancy. [facility] LMP: NONE GIVEN [facility] Prev. BX: NONE GIVEN [facility] Prev. PAP: NONE GIVEN [facility] SOURCE: None given [facility] Statement Of Adequacy: SEE COMMENT [facility] Comment: Satisfactory for evaluation. Endocervical/transformation zone component present. Age and/or menstrual status not provided 10/30/2021 9:58 AM EDT Charity Avila DO LAB PATHOLOGY ORDERABLES Fin al Result Performing Organization Address [facility] Co de Phone Number [facility] [address] * HPV mRNA E6/E7 REFLEX TO HPV 16, 18/45 (10/30/2021 9:58 AM EDT) HPV nRNA E6/E7 Not Detected Not Detected [facility] Comment: Methodology: Beer Coil Cleaner-Mediated Amplification This assay detects E6/E7 viral messenger RNA (mRNA) from 14 high-risk HPV types (16,18,31,33,35,39,45,51,52,56,58,59,66,68). ? Cervical sources are required for HPV testing. If a vaginal source from a patient who has had a total hysterectomy with removal of cervix was ?? submitted, please contact the testing laboratory for alternative testing options. ?? For additional information, please refer to http://education.ClickFacts/faq/BCL830p6 (This link if provided for information/ educational purposes only.) 10/30/2021 9:58 AM EDT Charity Avila DO LAB CYTOLOGY ORDERABLES Vibha l Result [facility] [address] from Last 3 Months or Most Recently Relevant to Health Maintenance Insurance , [address] [place] [address] Care Teams Senior Financial Relationship Specialty Start Date End Date Charity Avila DO [address] [place] [phone] PCP - General Family Medicine 03/07/18
--- OUTSIDE RECORDS SUMMARY | 2024-05-09 17:47 | XMS_ITS | Encounter Summary ---
Author Organization [employer] Address 75 [facility] 7t [place] [address] Care Team Providers Care Jointer Submarine Cable Name Role Phone Charity Avila DO Primary Care Provider Reason for Visit * Reason Comments Med Refill Encounter Details Date Type Department Care Team (Late st Contact Info) Description 04/29/2024 Refill [facility] [address] [place], [place] [phone] Charity Avila DO [address] [place], [place] [phone] Social History Tobacco Use Types Packs/Day Years Used Date Smoking Tobacco: Former Cigarettes Q uit: 04/15/2017 Passive Smoke Exposure: Never Smokeless Tobacco: Never Alcohol Use Standard Drinks/Week Comments Not Currently [...] Orientation Straight 01/04/2022 10 :16 AM EDT documented as of this encounter Plan of Treatment Not on file documented as of this encounter Visit Diagnoses Not on filedocumented in this encounter Additional Health Concerns Assessment Noted Time PHQ-9 Depression Total Score: 10 024 10:05 AM EDT documented as of this encounter Care Teams Jointer Submarine Cable Relationship Specialty Start Date End Date Charity Avila DO [address] [place] [address] PCP - General Family Medicine 03/07/18 documented as of this encounter
--- OUTSIDE RECORDS SUMMARY | 2024-05-09 17:47 | XMS_ITS | Encounter Summary ---
Author Organization [employer] Address [address] [place] [address] 7t [place] [address] Care Team Providers Care Day Care Assistant Name Role Phone Charity Avila DO Primary Care Provider Reason for Visit * Reason Onset Date Comments Med Refill 12/10/2022 Encounter Details Date Type Department Care Team (Late st Contact Info) Description 12/10/2022 Refill [facility] MEDICINE 230 [place] [address] Jeannie Gregory MD [address] [place] [address] Hypertension, unspecified type Social History Tobacco Use Types Packs/Day Years Used Date Smoking Tobacco: Former Cigarettes Q uit: 04/15/2017 Passive Smoke Exposure: Never Smokeless Tobacco: Never Alcohol Use Standard Drinks/Week Comments Yes 0 (1 standard drink = 0.6 oz pur e alcohol) Depression Answer Date Recorded Patient Health Questionnaire-9 Score 0 04/16/2022 Depression Answer Date Recorded Patient Health Questionnaire-2 Score 0 04/16/2022 Comments Unknown Sex and Gender Information Value Date Recorded Sex Assigned at Female 01/04/2022 10:16 AM EDT Legal Sex Female 10:16 AM EDT Gender Identity Female 01/04/2022 10:16 AM EDT Sexual Orientation Straight 01/04/2022 10 :16 AM EDT documented as of this encounter Plan of Treatment Not on file documented as of this encounter Visit Diagnoses Diagnosis Hypertension, unspecified type documented in this encounter Additional Health Concerns Assessment Noted Time PHQ-9 Depression Total Score: 0 04/16/19 23 9:53 AM EST documented as of this encounter Care Teams Day Care Assistant Relationship Specialty Start Date End Date Charity Avila DO [address] [place] [address] PCP - General Family Medicine 03/07/18 documented as of this encounter
--- OUTSIDE RECORDS SUMMARY | 2024-05-09 17:47 | XMS_ITS | Encounter Summary ---
Author Organization [employer] Address 75 [facility] 7t [place] [address] Care Team Providers Care Warp Spooler Name Role Phone Charity Avila DO Primary Care Provider [phone] Reason for Visit * Reason Comments Med Refill Encounter Details Date Type Department Care Team (Late st Contact Info) Description 05/03/2024 Refill [facility] MEDICINE [address] [place], [place] [phone] Charity Avila DO [address] [place], [place] [phone] Hypertension, unspecified type Social History Tobacco Use [...] documented as of this encounter Care Teams Warp Spooler Relationship Specialty Start Date End Date Charity Avila DO [address] [place] [address] PCP - General Family Medicine 03/07/18 documented as of this encounter
--- OUTSIDE RECORDS SUMMARY | 2024-05-09 17:47 | XMS_ITS | Encounter Summary ---
Author Organization [employer] Address [address] [facility] 7t [place] [address] Care Team Providers Care Pot Fireman Name Role Phone Charity Avila DO Primary Care Provider Reason for Visit * Reason Comments Med Refill Encounter Details Date Type Department Care Team (Late st Contact Info) Description 08/29/2023 Refill [facility] MEDICINE [address] [place], [place] [phone] Charity Avila DO 230 [place], [place] [phone] Vitamin D deficiency Social History Tobacco Use Types Packs/Day Years [...] Recorded What is your housing situation today? Not on mendel e 06/02/[address] you li ve. Do you have problems with any of the following? None of the above 06/02/2023 Food Insecurity Answer Date Recorded Within the [...] Recorded Patient Health Questionnaire-2 Score 3 06/02/2023 Comments Unknown Sex and Gender Information Value Date Recorded Sex Assigned at Female 01/04/2022 10:16 AM EDT Legal Sex Female 10:16 AM EDT Gender Identity Female 01/04/2022 10:16 AM EDT Sexual Orientation Straight 01/04/2022 10 :16 AM EDT documented as of this encounter Plan of Treatment Not on file documented as of this encounter Visit Diagnoses Diagnosis Vitamin D deficiency documented in this encounter Additional Health Concerns Assessment Noted Time PHQ-9 Depression Total Score: 10 024 10:05 AM EDT documented as of this encounter Care Teams Pot Fireman Relationship Specialty Start Date End Date Charity Avila DO [address] [place] [address] PCP - General Family Medicine 03/07/18 documented as of this encounter
--- OUTSIDE RECORDS SUMMARY | 2024-05-09 17:47 | XMS_ITS | Encounter Summary ---
Author Organization [employer] Address [address] [place] [address] 7t [place] [address] Care Team Providers Care Credit Rating Checker Name Role Phone Charity Avila DO Primary Care Provider [phone] Reason for Visit * Reason Onset Date Comments Med Refill 12/10/2022 Encounter Details Date Type Department Care Team (Late st Contact Info) Description 12/10/2022 Refill [facility]INE 230 [place] [address] Jeannie Gregory MD 230 [place] [address] Hypertension, unspecified type Social History Tobacco Use [...] documented as of this encounter Care Teams Credit Rating Checker Relationship Specialty Start Date End Date Charity Avila DO [address] [place] [address] PCP - General Family Medicine 03/07/18 documented as of this encounter
== END 2024-05-09 15:09 | disposition home or self-care (01) ==
PROVIDERS: PCP Family Medicine; Visit Provider Orthopaedic Surgery
DX: M17.0 Bilateral primary osteoarthritis of knee (principal)
CPT/HCPCS: 20610; 99213

== ENCOUNTER → 2024-05-09 14:43 | Outpatient (BNVA) | payer OTHER, SELFPAY | PROVIDERS: PCP Family Medicine; Visit Provider Orthopaedic Surgery | DX: M17.0 Bilateral primary osteoarthritis of knee (principal) | CPT/HCPCS: 20610; J2003; J7323 ==

== ENCOUNTER 2024-05-16 14:27 | Outpatient (AMB) | payer OTHER, SELFPAY ==
--- NOTE | 2024-05-16 14:28 | A.OFFVIS_ITS ---
Vital Signs 05/16/24 14:30 Height 5 ft 2 in Weight 225 lb BMI 41.1 Intake Visit Reasons: Inj: Bilateral Knee Euflexxa #2 Intake Note: Martha is a 48 year old female who presents to the office today for a second dose of the Euflexxa gel injection on both of her knees. The patient states that she got mild relief from the 1st set of injections. She continues with her home exercise program. 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, 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 Physical Exam Vital Signs: BMI result Body Mass Index 41.1 Extrem Other: Bilateral knee examination shows minimal effusions, palpable crepitus with range of motion, pain with range of motion, no instability Office Procedures AMB Joint Injection/Aspiration Joint Injection/Aspiration Primary Site: left knee Prep: site was prepped using aseptic technique Injected: 20 mg of (Euflexxa viscosupplementation) and 1% plain lidocaine Procedure: The patient tolerated the procedure well Coding 99587 - Large joint Procedure code (CPT) selection complete AMB Joint Injection/Aspiration Joint Injection/Aspiration Primary Site: right knee Prep: site was prepped using aseptic technique Injected: 20 mg of (Euflexxa viscosupplementation) and 1% plain lidocaine Procedure: The patient tolerated the procedure well Coding 92383 - Large joint Procedure code (CPT) selection complete Results Reviewed Results Reviewed: X-rays of the patient's bilateral knees taken previously show joint space narrowing, subchondral sclerosis, no acute bony abnormalities Assessment & Plan Assessment & Plan (1) Osteoarthritis of left knee: Code(s): M17.12 - Unilateral primary osteoarthritis, left knee Category: Medical (2) Arthritis of right knee: Code(s): M17.11 - Unilateral primary osteoarthritis, right knee Category: Medical Plan Ms. Don Hernandez presents with bilateral knee pains due to osteoarthritis. The risks and benefits of a 2nd set of Euflexxa viscosupplementation injections were discussed at length with the patient. The patient wished to proceed. She tolerated the injections well. She will continue with her home exercise program. She will follow up next week as scheduled. Feel free to call me at any time should questions regarding her orthopedic management arise. Orders: Orders AMB Joint Injection/Aspiration 05/16/24 M17.12 - Unilateral primary osteoarthritis, left knee AMB Joint Injection/Aspiration 05/16/24 M17.11 - Unilateral primary osteoarthritis, right knee Coding Level of Care Code Procedure Only Diagnoses Osteoarthritis of left knee M17.12 Arthritis of right knee M17.11 CPT Codes Coding - 81075 Large joint: 93098 - Large joint ([id number]) Coding - 37467 Large joint: 87151 - Large joint ([id number])
[2024-05-16 14:30] VITALS: BMI 41.1
--- OUTSIDE RECORDS SUMMARY | 2024-05-16 17:05 | XMS_ITS | Encounter Summary ---
Author Organization [employer] Address 75 [facility] 7t [place] [address] Care Team Providers Care Flight Inspector Name Role Phone Charity Avila DO Primary Care Provider [phone] Reason for Visit * Reason Comments Med Refill Encounter Details Date Type Department Care Team (Late st Contact Info) Description 05/03/2024 Refill [facility] MEDICINE 230 [place], [place] [phone] Charity Avila DO 230 [place], [place] [phone] Hypertension, unspecified type Social History Tobacco Use [...] documented as of this encounter Care Teams Flight Inspector Relationship Specialty Start Date End Date Charity Avila DO [address] [place] [address] PCP - General Family Medicine 03/07/18 documented as of this encounter
--- OUTSIDE RECORDS SUMMARY | 2024-05-16 17:05 | XMS_ITS | Encounter Summary ---
Author Organization [employer] Address 75 [facility] 7t [place] [address] Care Team Providers Care Bread Slicer Machine Name Role Phone Charity Avila DO Primary Care Provider Reason for Visit * Reason Comments Med Refill Encounter Details Date Type Department Care Team (Late st Contact Info) Description 08/29/2023 Refill [facility] MEDICINE 230 [place], [place] [phone] Charity Avila DO 230 [place], [place] [phone] Vitamin D deficiency Social History Tobacco Use [...] documented as of this encounter Care Teams Bread Slicer Machine Relationship Specialty Start Date End Date Charity Avila DO [address] [place] [address] PCP - General Family Medicine 03/07/18 documented as of this encounter
--- OUTSIDE RECORDS SUMMARY | 2024-05-16 17:05 | XMS_ITS | Encounter Summary ---
Author Organization [employer] Address [address] [place] [address] 7t [place] [address] Care Team Providers Care Cooling System Operator Name Role Phone Charity Avila DO Primary Care Provider Reason for Visit * Reason Onset Date Comments Med Refill 12/10/2022 Encounter Details Date Type Department Care Team (Late st Contact Info) Description 12/10/2022 Refill [facility] MEDICINE 230 [place] [address] Jeannie Gregory MD [address] [place] [address] Hypertension, unspecified type Social History Tobacco Use [...] documented as of this encounter Care Teams Cooling System Operator Relationship Specialty Start Date End Date Charity Avila DO [address] [place] [address] PCP - General Family Medicine 03/07/18 documented as of this encounter
--- OUTSIDE RECORDS SUMMARY | 2024-05-16 17:05 | XMS_ITS | Clinical Summary ---
Author Organization [employer] Address 75 [facility] 7t [place] [address] Care Team Providers Care Line Painting Machine Operator Name Role Phone Charity Avila Primary Care Provider Allergies No known active allergies Medications baclofen [...] -re-referred for pelvic US -consider eval w/ [facility] -advised contact [facility] if sx change or worsen BMI 39.0-39.9,adult [...] urine microalbumin wnl FEB 2020 -referred to [facility] optho for eval Resolved Problems Problem Noted Date Diagnosed Date Resolved Date Dizziness 07/26/2023 08/02/2023 Chronic pelvic pain in female 04/04/2018 04/16/2022 Morbid obesity 04/30/2015 08/02/2023 Encounters Date Type Department Care Team Description 05/03/[address] [facility] MEDICINE [address] [place] [address] Charity Avila DO Hypertension, unspecified type 04/29/[address] [facility] MEDICINE [address] [place] [address] Charity Avila DO from Last 3 Months Immunizations Name Administration [...] HPV/Cotest 10/30/2026 10/30/2021 Lipid Panel 12/16/2027 12/15/2022, 0808/2021, 02/18/2020 DTaP/Tdap/Td Vaccines (2 - Td or [...] EST Narrative 02/04/2023 8:30 AM EST ? [facility] ? [address] ?[place] [address] ? Mammography Report ? Signed ? Patient: Bright,Martha E ?MR#: [id number] ?? 134 ? : 1975 ?Acct:[id number] ? Age/Sex: 47 / F ?ADM Date: 01/19/23 ? Loc: HO.MAMMO ? Attending Dr: Charity Avila DO ? Ordering Physician: Charity Avila DO ?Results: 1N ?? egative ? Date of Service: 01/19/23 ?Follow Up: 1 Year From Orig ?? inal Mammogram ? Procedure(s): MM tomosynthesis screening BI ?? Accession Number(s): [id number] ? cc: Charity Avila DO ? EXAMINATION: [...] by Sharmila Jacobo MD in OV> ? 02/04/23826 ? DD/ 1440 ? TD/TT: ? Activity Therapist: ? Procedure Note Kinga, Susan - 02/04/2023 [facility] [address] [place] [address] Mammography Report Signed Patient: Martha Novoa EMR#: [id number] 134 : 1975Acct:[id number] Age/Sex: 47 / FADM Date: 01/19/23 Loc: HO.MAMMO Attending Dr: Charity Avila DO Ordering Physician: Charity Avilaults: 1N egative Date of Service: 01/19/23Follow Up: 1 Year From [facility] Mammogram Procedure(s): MM tomosynthesis screening BI Accession Number(s): [id number] cc: Charity Avila DO EXAMINATION: MM SCREENING [...] Jacobo MD in OV> 02/04/23 0827 DD/ 144 TD/TT: Activity Therapist: us Charity Avila DO IMG BI PROCEDURES Final Resu lt * HIV Ab/Ag ([facility]) (12/15/2022 12:57 PM EDT) HIV AB/AG Nonreactive Nonreactive [facility] Comment:HIV-1 p24 Ag and/or HIV-1/HIV-2 Ab not detected.A test result that is nonreactive does not exclude thepossibility of exposure to or infection with HIV-1 and/orHIV-2. Nonreactive results in this assay for individualswith prior exposure to HIV-1 and/or HIV-2 may be due toantigen and antibody levels that are below the limit ofdetection of this assay.The Updox HIV Ag/Ab Combo assay result andsupplemental assay results should be interpreted inconjunction with the patient's clinical presentation,history and other laboratory results. If the results areinconsistent with clinical evidence, additional testing issuggested to confirm the result. 12/15/2022 12:5 7 PM EDT 12/15/2022 3:58 PM EDT us Charity Avila DO LAB BLOOD ORDERABLES Final R esult [facility] [address] [place] [phone] * Hepatitis C Antibody with Reflex to HCV, RNA, Quantitative, Real-Time PCR (12/15/2022 12:57 PM EDT) Hepatitis C Antibody Nonreactive Nonreactive [facility] Comment:Antibodies to HCV no t detected; does not exclude early acuteHCV infection. 12/15/2022 12:5 7 PM EDT 12/15/2022 3:58 PM EDT us Charity Avila DO LAB BLOOD ORDERABLES Final R esult [facility] [address] [place] [address] [phone] * Lipid Panel, Standard (12/15/2022 12:57 PM EDT) Triglycerides 91 <150 mg/dL [facility] Comment:Desirable Triglyceri de: less than 150 mg/dLBorderline High Triglyceride 150-199 mg/dLHigh Triglyceride: 200-499 mg/dLVery High Triglyceride: greater than or equal to 5OO mg/dL Cholesterol 172 <200 mg/dL [facility] Comment:Desirable Cholestero l: less than 200 mg/dLBorderline High Cholesterol: 200-239 mg/dLHigh Cholesterol: greater than 239 mg/dL LDL Cholesterol Calculated 99 <100 mg/dL [facility] Comment:Desirable LDL: less than 100 mg/dLNear Optimal/Above Optimal LDL: 110- 129 mg/dLBorderline High LDL: 130-159 mg/dLHigh LDL: 160-189 mg/dLVery High LDL: greater than or equal to 190 mg/dL HDL Cholesterol 55 >40 mg/dL [facility] Comment:Desirable HDL: great er than 40 mg/dL Note: This HDL assay may give artificially low results in patients with liver disease. Blood Venous blood specimen / Unknown 12/15/2022 12:57 PM EDT 12/15/2022 3:58 PM EDT us Charity Avila DO LAB BLOOD ORDERABLES Final R esult [facility] [address] [place] [address] [phone] * THINPREP TIS PAP (10/30/2021 9:58 [...] has been evaluated with computer assisted technology. [facility] Copy Center Associate : SEE COMMENT [facility] Comment: [facility], CT(ASCP) CT screening location: [address] ??[id number] Infection Shift in vaginal esthela suggestive of bacterial vaginosis. [facility] Interpretation/R esult: Negative for intraepithelial lesion or malignancy. [facility] LMP: NONE GIVEN [facility] Prev. BX: NONE GIVEN [facility] Prev. PAP: NONE GIVEN [facility] SOURCE: None given [facility] Statement Of Adequacy: SEE COMMENT [facility] Comment: Satisfactory for evaluation. Endocervical/transformation zone component present. Age and/or menstrual status not provided 10/30/2021 9:58 AM EDT us Charity Avila DO LAB PATHOLOGY ORDERABLES Fin al Result Performing Organization Address City/[facility]/ZIP Co de Phone Number [facility] [address] * HPV mRNA E6/E7 REFLEX TO HPV 16, 18/45 (10/30/2021 9:58 AM EDT) HPV nRNA E6/E7 Not Detected Not Detected [facility] Comment: Methodology: Audio Video Repairer-Mediated Amplification This assay detects E6/E7 viral messenger RNA (mRNA) from 14 high-risk HPV types (16,18,31,33,35,39,45,51,52,56,58,59,66,68). ? Cervical sources are required for HPV testing. If a vaginal source from a patient who has had a total hysterectomy with removal of cervix was ?? submitted, please contact the testing laboratory for alternative testing options. ?? For additional information, please refer to http://Sol[employer].8hands/faq/ZKN940t2 (This link if provided for information/ educational purposes only.) 10/30/2021 9:58 AM EDT Charity Avila DO LAB CYTOLOGY ORDERABLES Vibha l Result Performing Organization Address City/State/[facility] Co de Phone Number [facility] Formerly [facility] [address] from Last 3 Months or Most Recently Relevant to Health Maintenance Insurance [facility] , [address] [place] [address] Care Teams Line Painting Machine Operator Relationship Specialty Start Date End Date Charity Avila DO [address] [place] [address] PCP - General Family Medicine 03/07/18
--- OUTSIDE RECORDS SUMMARY | 2024-05-16 17:05 | XMS_ITS | Encounter Summary ---
Author Organization [employer] Address [address] [place] [address] 7t [place] [address] Care Team Providers Care Candy Depositing Machine Operator Name Role Phone Charity Avila DO Primary Care Provider Reason for Visit * Reason Onset Date Comments Med Refill 12/10/2022 Encounter Details Date Type Department Care Team (Late st Contact Info) Description 12/10/2022 Refill [facility] MEDICINE [address] [place] [address] Jeannie Gregory MD [address] [place] [address] Hypertension, unspecified type Social History Tobacco Use [...] documented as of this encounter Care Teams Candy Depositing Machine Operator Relationship Specialty Start Date End Date Charity Avila DO [address] [place] [address] PCP - General Family Medicine 03/07/18 documented as of this encounter
--- OUTSIDE RECORDS SUMMARY | 2024-05-16 17:05 | XMS_ITS | Encounter Summary ---
Author Organization [employer] Address 75 [facility] 7t [place] [address] Care Team Providers Care Commercial Airline Pilot Name Role Phone Charity Avila DO Primary Care Provider Reason for Visit * Reason Comments Med Refill Encounter Details Date Type Department Care Team (Late st Contact Info) Description 04/29/2024 Refill [facility] MEDICINE [address] [place], [place] [phone] Charity Avila DO [address] [place], [place] [phone] Social History Tobacco Use Types Packs/Day Years [...] documented as of this encounter Care Teams Commercial Airline Pilot Relationship Specialty Start Date End Date Charity Avila DO [address] [place] [address] PCP - General Family Medicine 03/07/18 documented as of this encounter
== END 2024-05-16 14:55 | disposition home or self-care (01) ==
LOC: HO.HOS 14:27
PROVIDERS: PCP Family Medicine; Visit Provider Orthopaedic Surgery
DX: M17.0 Bilateral primary osteoarthritis of knee (principal)
CPT/HCPCS: 20610

== ENCOUNTER → 2024-05-16 14:27 | Outpatient (BNVA) | payer OTHER, SELFPAY | PROVIDERS: PCP Family Medicine; Visit Provider Orthopaedic Surgery | DX: M17.0 Bilateral primary osteoarthritis of knee (principal) | CPT/HCPCS: 20610; J2003; J7323 ==

== ENCOUNTER 2024-05-23 14:14 | Outpatient (AMB) | payer OTHER, SELFPAY ==
[2024-05-23 14:34] VITALS: BMI 41.1
--- NOTE | 2024-05-23 14:34 | MHC.OFFVIS ---
Vital Signs 05/23/24 14:34 Height 5 ft 2 in Weight 225 lb BMI 41.1 Intake Visit Reasons: Inj: Bilateral Knee Euflexxa #3 Intake Note: Martha is a 48 year old female who presents today for her 3rd dose of the Euflexxa gel injection on both of her knees. She states that she has gotten mild relief from the 1st 2 injections. She continues with her home exercise program. 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 Physical Exam Vital Signs: BMI result Body Mass Index 41.1 Extrem Other: Bilateral knee examination shows minimal effusions, palpable crepitus with range of motion, no instability Office Procedures AMB Joint Injection/Aspiration Joint Injection/Aspiration Primary Site: left knee Prep: site was prepped using aseptic technique Injected: 20 mg of (Euflexxa viscosupplementation) and 1% plain lidocaine Procedure: The patient tolerated the procedure well Coding 64499 - Large joint Procedure code (CPT) selection complete AMB Joint Injection/Aspiration Joint Injection/Aspiration Primary Site: right knee Prep: site was prepped using aseptic technique Injected: 20 mg of (Euflexxa viscosupplementation) and 1% plain lidocaine Procedure: The patient tolerated the procedure well Coding 96175 - Large joint Procedure code (CPT) selection complete Results Reviewed Results Reviewed: X-rays of the patient's bilateral knees taken previously show joint space narrowing, subchondral sclerosis, no acute bony abnormalities Assessment & Plan Assessment & Plan (1) Osteoarthritis of left knee: Code(s): M17.12 - Unilateral primary osteoarthritis, left knee Category: Medical (2) Osteoarthritis of right knee: Code(s): M17.11 - Unilateral primary osteoarthritis, right knee Category: Medical Plan Martha presents with bilateral knee pains due to osteoarthritis. The risks and benefits of a 3rd set of Euflexxa viscosupplementation injections were discussed at length with the patient. The patient wished to proceed. She tolerated the injections well. She will continue with her home exercise program. She will contact me prior to her follow-up appointment in 3 months should any questions or concerns arise. Feel free to call me at any time should questions regarding her orthopedic management arise. Orders: Orders AMB Joint Injection/Aspiration Today M17.11 - Unilateral primary osteoarthritis, right knee AMB Joint Injection/Aspiration Today M17.12 - Unilateral primary osteoarthritis, left knee Coding Level of Care Code Procedure Only Diagnoses Osteoarthritis of left knee M17.12 Osteoarthritis of right knee M17.11 CPT Codes Coding - 52188 Large joint: 43495 - Large joint ([id number]) Coding - 59880 Large joint: 45222 - Large joint ([id number])
--- OUTSIDE RECORDS SUMMARY | 2024-05-23 16:36 | XMS_ITS | Encounter Summary ---
Author Organization [employer] Address [address] [facility] [address]t [place] [address] Care Team Providers Care Mig Tig Welder Name Role Phone Charity Avila DO Primary Care Provider Reason for Visit * Reason Comments Med Refill Encounter Details Date Type Department Care Team (Late st Contact Info) Description 08/29/2023 Refill [facility] MEDICINE [address] [place], [place] [phone] Charity Avila DO [address] [place], [place] [phone] Vitamin D deficiency Social History Tobacco Use [...] documented as of this encounter Care Teams Mig Tig Welder Relationship Specialty Start Date End Date Charity Avila DO [address] [place] [phone] PCP - General Family Medicine 03/07/18 documented as of this encounter
--- OUTSIDE RECORDS SUMMARY | 2024-05-23 16:37 | XMS_ITS | Clinical Summary ---
Author Organization [employer] Address [address] [facility] [address]t [place] [address] Care Team Providers Care Administrative Tech Name Role Phone Charity Avila Primary Care [...] -re-referred for pelvic US -consider eval w/ PIGMENT PUMPER -advised contact [facility] if sx change or worsen BMI 39.0-39.9,adult [...] urine microalbumin wnl FEB 2020 -referred to [facility] optho for eval Resolved Problems Problem Noted Date Diagnosed Date Resolved Date Dizziness 07/26/2023 08/02/2023 Chronic pelvic pain in female 04/04/2018 04/16/2022 Morbid obesity 04/30/2015 08/02/2023 Encounters Date Type Department Care Team Description 05/03/2024 Refill [facility] MEDICINE [address] [place] [address] Charity Avila DO Hypertension, unspecified type 04/29/2024 Refill [facility] MEDICINE [address] [place] [address] Charity Avila DO from Last 3 Months [...] Narrative 02/04/2023 8:30 AM EST ? [facility] ? [address] ?[place] [address] ? Mammography Report ? Signed ? Patient: Bright,Martha E ?MR#: [id number] ?? 134 ? : 1975 ?Acct:[id number] ? Age/Sex: 47 / F ?ADM Date: 01/19/23 ? Loc: HO.MAMMO ? Attending Dr: Charity Avila DO ? Ordering Physician: Charity Avila DO ?Results: 1N ?? egative ? Date of Service: 01/19/23 ?Follow Up: 1 Year From Orig ?? inal Mammogram ? Procedure(s): MM tomosynthesis screening BI ?? Accession Number(s): [id number] ? cc: Charity Avila DO ? EXAMINATION: [...] 02/04/23826 ? DD/ 1440 ? TD/TT: ? Prosthetic Technician: ? Procedure Note Kinga, Susan - 02/04/2023 [facility] [address] [place] [address] Mammography Report Signed Patient: Martha Novoa EMR#: [id number] 134 : 1975Acct:[id number] Age/Sex: 47 / FADM Date: 01/19/23 Loc: HO.MAMMO Attending Dr: Charity Avila DO Ordering Physician: Charity Avilaults: 1N egative Date of Service: 01/19/23Follow Up: 1 Year From [facility] Mammogram Procedure(s): MM tomosynthesis screening BI Accession Number(s): [id number] cc: Charity Avila DO EXAMINATION: MM SCREENING [...] in OV> 02/04/23 0827 DD/ 144 TD/TT: Prosthetic Technician: us Charity Avila DO IMG BI PROCEDURES Final Resu lt * HIV Ab/Ag ([facility]) (12/15/2022 12:57 PM EDT) HIV AB/AG Nonreactive Nonreactive [facility] Comment:HIV-1 p24 Ag and/or HIV-1/HIV-2 Ab not detected.A test result that is nonreactive does not exclude thepossibility of exposure to or infection with HIV-1 and/orHIV-2. Nonreactive results in this assay for individualswith prior exposure to HIV-1 and/or HIV-2 may be due toantigen and antibody levels that are below the limit ofdetection of this assay.The [employer] HIV Ag/Ab Combo assay result andsupplemental assay results should be interpreted inconjunction with the patient's clinical presentation,history and other laboratory results. If the results areinconsistent with clinical evidence, additional testing issuggested to confirm the result. 12/15/2022 12:5 7 PM EDT 12/15/2022 3:58 PM EDT us Charity Avila DO LAB BLOOD ORDERABLES Final R esult [facility] [address] [place] [phone] * Hepatitis C Antibody with Reflex to HCV, RNA, Quantitative, Real-Time PCR (12/15/2022 12:57 PM EDT) Hepatitis C Antibody Nonreactive Nonreactive [facility] Comment:Antibodies to HCV no t detected; does not exclude early acuteHCV infection. 12/15/2022 12:5 7 PM EDT 12/15/2022 3:58 PM EDT us Charity Avila DO LAB BLOOD ORDERABLES Final R esult [facility] [address] [place] [address] [phone] * Lipid Panel, Standard (12/15/2022 12:57 PM EDT) Triglycerides 91 <150 mg/dL [facility] Comment:Desirable Triglyceri de: less than 150 mg/dLBorderline High Triglyceride 150-199 mg/dLHigh Triglyceride: 200-499 mg/dLVery High Triglyceride: greater than or equal to 5OO mg/dL Cholesterol 172 <200 mg/dL [facility] Comment:Desirable Cholestero l: less than 200 mg/dLBorderline High Cholesterol: 200-239 mg/dLHigh Cholesterol: greater than 239 mg/dL LDL Cholesterol Calculated 99 <100 mg/dL [facility] Comment:Desirable LDL: less than 100 mg/dLNear Optimal/Above Optimal LDL: 110- 129 mg/dLBorderline High LDL: 130-159 mg/dLHigh LDL: 160-189 mg/dLVery High LDL: greater than or equal to 190 mg/dL HDL Cholesterol 55 >40 mg/dL [facility] Comment:Desirable HDL: great er than 40 mg/dL Note: This HDL assay may give artificially low results in patients with liver disease. Blood Venous blood specimen / Unknown 12/15/2022 12:57 PM EDT 12/15/2022 3:58 PM EDT us Charity Avila DO LAB BLOOD ORDERABLES Final R esult [facility] [address] [place] [address] [phone] * THINPREP TIS PAP (10/30/2021 9:58 [...] with computer assisted technology. [facility] Rubber Calender Helper : SEE COMMENT [facility] Comment: [facility], CT(ASCP) CT screening location: [address] ??[address] Infection Shift in vaginal esthela suggestive of bacterial vaginosis. [facility] Interpretation/R esult: Negative for intraepithelial lesion or malignancy. [facility] LMP: NONE GIVEN FOUNDATIO N [...] ORDERABLES Fin al Result Performing Organization Address City/[facility]/ZIP Co de Phone Number [email or web address] [address] * HPV mRNA E6/E7 REFLEX TO HPV 16, 18/45 (10/30/2021 9:58 AM EDT) HPV nRNA E6/E7 Not Detected Not Detected [facility] Comment: Methodology: Corn Cutter-Mediated Amplification This assay detects E6/E7 viral messenger RNA (mRNA) from 14 high-risk HPV types (16,18,31,33,35,39,45,51,52,56,58,59,66,68). ? Cervical sources are required for HPV testing. If a vaginal source from a patient who has had a total hysterectomy with removal of cervix was ?? submitted, please contact the testing laboratory for alternative testing options. ?? For additional information, please refer to [email or web address] (This link if provided for information/ educational purposes only.) 10/30/2021 9:58 AM EDT Charity Avila DO LAB CYTOLOGY ORDERABLES Vibha l Result Performing Organization Address City/State/[facility] Co de Phone Number [facility] [address] from Last 3 Months or Most Recently Relevant to Health Maintenance Insurance [facility] , [address] [place] [address] Care Teams Administrative Tech Relationship Specialty Start Date End Date Charity Avila DO [address] [place] [phone] PCP - General Family Medicine 03/07/18
--- OUTSIDE RECORDS SUMMARY | 2024-05-23 16:37 | XMS_ITS | Encounter Summary ---
Author Organization [employer] Address [address] [facility] 7t [place] [address] Care Team Providers Care Tibco Developer Name Role Phone Charity Avila DO Primary Care Provider [phone] Reason for Visit * Reason Comments Med Refill Encounter Details Date Type Department Care Team (Late st Contact Info) Description 04/29/2024 Refill [facility] MEDICINE 230 [place], [place] [phone] Charity Avila DO [address] [place], [place] [phone] Social History Tobacco Use Types Packs/Day Years [...] documented as of this encounter Care Teams Tibco Developer Relationship Specialty Start Date End Date Charity Avila DO [address] [place] [address] PCP - General Family Medicine 03/07/18 documented as of this encounter
--- OUTSIDE RECORDS SUMMARY | 2024-05-23 16:37 | XMS_ITS | Encounter Summary ---
Author Organization [employer] Address [address] [place] [address] 7t [place] [address] Care Team Providers Care Piston Maker Name Role Phone Charity Avila DO Primary Care Provider Reason for Visit * Reason Onset Date Comments Med Refill 12/10/2022 Encounter Details Date Type Department Care Team (Late st Contact Info) Description 12/10/2022 Refill [facility] MEDICINE [address] [place] [address] Jeannie Gregory MD [address] [place] [address] Hypertension, unspecified type Social History Tobacco Use [...] documented as of this encounter Care Teams Piston Maker Relationship Specialty Start Date End Date Charity Avila DO [address] [place] [address] PCP - General Family Medicine 03/07/18 documented as of this encounter
--- OUTSIDE RECORDS SUMMARY | 2024-05-23 16:37 | XMS_ITS | Encounter Summary ---
Author Organization [employer] Address [address] [facility] 7t [place] [address] Care Team Providers Care Beef Grader Name Role Phone Charity Avila DO Primary Care Provider Reason for Visit * Reason Comments Med Refill Encounter Details Date Type Department Care Team (Late st Contact Info) Description 05/03/2024 Refill [facility] MEDICINE [address] [place], [place] [phone] Charity Avila DO [address] [place], [place] [phone] Hypertension, unspecified type Social History Tobacco Use [...] documented as of this encounter Care Teams Beef Grader Relationship Specialty Start Date End Date Charity Avila DO [address] [place] [address] PCP - General Family Medicine 03/07/18 documented as of this encounter
--- OUTSIDE RECORDS SUMMARY | 2024-05-23 16:37 | XMS_ITS | Encounter Summary ---
Author Organization [employer] Address [address] [place] [address] 7t [place] [address] Care Team Providers Care Dormitory Counselor Name Role Phone Charity Avila DO Primary Care Provider Reason for Visit * Reason Onset Date Comments Med Refill 12/10/2022 Encounter Details Date Type Department Care Team (Late st Contact Info) Description 12/10/2022 Refill [facility] MEDICINE [address] [place] [address] Jeannie Gregory MD [address] [place] [address] Hypertension, unspecified type Social History Tobacco Use [...] documented as of this encounter Care Teams Dormitory Counselor Relationship Specialty Start Date End Date Charity Avila DO [address] [place] [address] PCP - General Family Medicine 03/07/18 documented as of this encounter
== END 2024-05-23 15:11 | disposition home or self-care (01) ==
LOC: HO.HOS 14:15
PROVIDERS: PCP Family Medicine; Visit Provider Orthopaedic Surgery
DX: M17.0 Bilateral primary osteoarthritis of knee (principal)
CPT/HCPCS: 20610

== ENCOUNTER → 2024-05-23 14:14 | Outpatient (BNVA) | payer OTHER, SELFPAY | PROVIDERS: PCP Family Medicine; Visit Provider Orthopaedic Surgery | DX: M17.0 Bilateral primary osteoarthritis of knee (principal) | CPT/HCPCS: 20610; J2003; J7323 ==

== ENCOUNTER 2024-08-29 14:23 | Outpatient (AMB) | payer OTHER, SELFPAY ==
[2024-08-29 14:25] VITALS: BMI 41.1
--- NOTE | 2024-08-29 14:25 | MHC.OFFVIS ---
Vital Signs 08/29/24 14:25 Height 5 ft 2 in Weight 225 lb BMI 41.1 Intake Visit Reasons: Bilateral knee pains Intake Note: Martha is a 49 year old female who presents with complaints of bilateral knee pains. She has had cortisone injections in the past which gave her minimal relief. She has also had Euflexxa viscosupplementation injections which gave her fairly good relief. She has done physical therapy exercises which aggravated her pain. She has also tried Tylenol, anti-inflammatory medicines and topical diclofenac gel which gave her minimal relief. At this point her bilateral knee pains are interfering with her activities of daily living and her ability to sleep well through the night. She has tried a home exercise program which aggravates her pain as well. Allergies No Known Allergies (No Known Allergies*) Allergy (Verified 08/29/24 14:26) Medication List - Last Reconciled 08/29/24 by Temo Maradiaga MD cholecalciferol (vitamin D3) 50 mcg PO DAILY diclofenac sodium 1% 1 ea topical DAILY hydrochlorothiazide 25 mg PO DAILY lisinopril 5 mg PO DAILY [facility] Medical History Arthritis of right knee Arthritis of left knee Surgical History Hx of section Family History Maternal Grandfather Colon cancer Social History Alcohol intake: never Patient Tobacco Use Status: Never used Tobacco Current occupational status: employed 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, 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 Physical Exam Vital Signs: BMI result Body Mass Index 41.1 Const Other: Well-nourished well-developed very friendly female awake alert and oriented x3 in no acute distress Extrem Other: Bilateral lower extremity examination shows good capillary refill, no skin lesions noted, normal sensation light touch Bilateral knee examination shows minimal effusions, palpable crepitus with range of motion, pain with range of motion, no instability Results Reviewed Results Reviewed: X-rays of the patient's bilateral knees taken previously show joint space narrowing, subchondral sclerosis, no acute bony abnormalities Assessment & Plan Assessment & Plan (1) Osteoarthritis of left knee: Code(s): M17.12 - Unilateral primary osteoarthritis, left knee Category: Medical (2) Osteoarthritis of right knee: Code(s): M17.11 - Unilateral primary osteoarthritis, right knee Category: Medical Plan Ms. Don Malone presents with bilateral knee pains due to osteoarthritis. I had a lengthy discussion with the patient regarding the treatment options. She wishes to hold off on surgery for as long as possible. I agree with this plan. I will see if the patient's insurance company will cover a another series of 3 Euflexxa injections for both of her knees. I will see her back once the injections are available. Feel free to call me at any time should questions regarding her orthopedic management arise. I spent 21 minutes in reviewing the patient's records and imaging studies, seeing the patient and documenting in the medical record. Coding Level of Care Code Est Pt Level 3 (91224) Complex EM visit Add On G2211 Diagnoses Osteoarthritis of left knee M17.12 Osteoarthritis of right knee M17.11
--- OUTSIDE RECORDS SUMMARY | 2024-08-29 17:10 | XMS_ITS | Encounter Summary ---
Author Organization [employer] Address [address] [facility] 7t [place] [address] Care Team Providers Care City Solicitor Name Role Phone Charity Avila DO Primary Care Provider [phone] Reason for Visit * Reason Comments Med Refill Encounter Details Date Type Department Care Team ([facility] st Contact Info) Description 08/29/2023 Refill [facility] MEDICINE [address] [place], [place] [phone] Charity Avila DO 230 [place], [place] [phone] Vitamin D deficiency Social History Tobacco Use [...] documented as of this encounter Care Teams City Solicitor Relationship Specialty Start Date End Date Charity Avila DO [address] [place] [phone] PCP - General Family Medicine 03/07/18 documented as of this encounter
== END 2024-08-29 14:33 | disposition home or self-care (01) ==
LOC: HO.HOS 14:23
PROVIDERS: PCP Family Medicine; Visit Provider Orthopaedic Surgery
DX: M17.0 Bilateral primary osteoarthritis of knee (principal)
CPT/HCPCS: 99213; G2211

== ENCOUNTER 2024-11-29 14:49 | Outpatient (AMB) | payer OTHER, SELFPAY ==
--- NOTE | 2024-11-29 14:53 | A.OFFVIS_ITS ---
Vital Signs 11/29/24 14:56 Height 5 ft 2 in Weight 225 lb BMI 41.1 Intake Visit Reasons: Bilateral Knee Euflexxa #1 Intake Note: Martha 49 yr old female presents with complaints of bilateral knee pains. She describes her pains as sharp in nature. Her pains have gotten worse over the last few months in spite of continued non operative treatments. She has failed the last 3 months of conservative treatment. She has tried Tylenol, anti- inflammatory medicines, topical diclofenac gel and physical therapy exercises which gave her minimal relief. She wishes to hold off on surgery if at all possible. 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, 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 Physical Exam Vital Signs: BMI result Body Mass Index 41.1 Const Other: Well-nourished well-developed very friendly female awake alert and oriented x3 in no acute distress Extrem Other: Bilateral knee examination shows minimal effusions, palpable crepitus with range of motion, pain with range of motion, no instability Office Procedures AMB Joint Injection/Aspiration Joint Injection/Aspiration Primary Site: left knee Prep: site was prepped using aseptic technique Injected: 20 mg of (Euflexxa viscosupplementation) and 1% plain lidocaine Procedure: The patient tolerated the procedure well Coding 76206 - Large joint Procedure code (CPT) selection complete AMB Joint Injection/Aspiration Joint Injection/Aspiration Primary Site: right knee Prep: site was prepped using aseptic technique Injected: 20 mg of (Euflexxa viscosupplementation) and 1% plain lidocaine Procedure: The patient tolerated the procedure well Coding 69907 - Large joint Procedure code (CPT) selection complete Results Reviewed Results Reviewed: X-rays of the patient's bilateral knees taken previously show joint space narrowing, subchondral sclerosis, no acute bony abnormalities Assessment & Plan Assessment & Plan (1) Osteoarthritis of left knee: Code(s): M17.12 - Unilateral primary osteoarthritis, left knee Category: Medical (2) Osteoarthritis of right knee: Code(s): M17.11 - Unilateral primary osteoarthritis, right knee Category: Medical Plan Martha presents with bilateral knee pains due to osteoarthritis. The risks and benefits of a series of Euflexxa viscosupplementation injections were discussed at length with the patient. The patient wished to proceed. She tolerated the 1st set of injections well. She will continue with her home exercise program. She will follow up next week as scheduled. Feel free to call me at any time should questions regarding her orthopedic management arise. I spent 20 minutes in reviewing the patient's records and imaging studies, seeing the patient and documenting in the medical record. Orders: Orders AMB Joint Injection/Aspiration Today M17.12 - Unilateral primary osteoarthritis, left knee AMB Joint Injection/Aspiration Today M17.11 - Unilateral primary osteoarthr itis, right knee Coding Level of Care Code Est Pt Level 3 (12903) Complex EM visit Add On G2211 Diagnoses Osteoarthritis of left knee M17.12 Osteoarthritis of right knee M17.11 CPT Codes Coding - 11594 Large joint: 77832 - Large joint ([id number]) Coding - 72611 Large joint: 58096 - Large joint ([id number])
[2024-11-29 14:56] VITALS: BMI 41.1
--- OUTSIDE RECORDS SUMMARY | 2024-11-29 19:04 | XMS_ITS | Encounter Summary ---
Author Organization [employer] Address [address] [place] [address] 7t [place] [address] Care Team Providers Care Mortar Mixer Operator Name Role Phone Charity Avila DO Primary Care Provider Reason for Visit * Reason Onset Date Comments Med Refill 12/10/2022 Encounter Details Date Type Department Care Team (Late st Contact Info) Description 12/10/2022 Refill [facility] MEDICINE [address] [place] [address] Jeannie Gregory MD [address] [place] [address] Hypertension, unspecified type Social History Tobacco Use [...] documented as of this encounter Care Teams Mortar Mixer Operator Relationship Specialty Start Date End Date Charity Avila DO [address] [place] [phone] PCP - General Family Medicine 03/07/18 documented as of this encounter
--- OUTSIDE RECORDS SUMMARY | 2024-11-29 19:04 | XMS_ITS | Encounter Summary ---
Author Organization [employer] Address [address] [facility] 7t [place] [address] Care Team Providers Care Print Decorator Name Role Phone Charity Avila DO Primary Care Provider [phone] Reason for Visit * Reason Comments Med Refill Encounter Details Date Type Department Care Team ([facility] st Contact Info) Description 08/29/2023 Refill [facility] MEDICINE 230 [place], [place] [phone] Charity Avila DO 230 [place], [place] [phone] Vitamin D deficiency Social History Tobacco Use [...] documented as of this encounter Care Teams Print Decorator Relationship Specialty Start Date End Date Charity Avila DO [address] [place] [phone] PCP - General Family Medicine 03/07/18 documented as of this encounter
--- OUTSIDE RECORDS SUMMARY | 2024-11-29 19:04 | XMS_ITS | Encounter Summary ---
Author Organization [employer] Address [address] [place] [address] 7t [place] [address] Care Team Providers Care Trauma Registrar Name Role Phone Charity Avila DO Primary Care Provider Reason for Visit * Reason Onset Date Comments Med Refill 12/10/2022 Encounter Details Date Type Department Care Team (Late st Contact Info) Description 12/10/2022 Refill [facility] MEDICINE [address] [place] [address] Jeannie Gregory MD [address] [place] [address] Hypertension, unspecified type Social History Tobacco Use [...] documented as of this encounter Care Teams Trauma Registrar Relationship Specialty Start Date End Date Charity Avila DO [address] [place] [phone] PCP - General Family Medicine 03/07/18 documented as of this encounter
--- OUTSIDE RECORDS SUMMARY | 2024-11-29 19:05 | XMS_ITS | Clinical Summary ---
Author Organization [employer] Address [address] [facility] 7t [place] [address] Care Team Providers Care Sizer Hand Name Role Phone Charity Avila Primary Care Provider Allergies No known active allergies Medications baclofen (Lioresal) 10 MG tablet Take 1 tablet (10 mg) by mouth if needed in the morning, at noon, and at bedtime for muscle spasms. 60 tablet 1 4 Active [facility] Gentle Laxative 5 MG EC tablet Take 5 mg by mouth if needed each day for constipation. 4 Active witch flora-glycerin (Tucks) pad Apply topically if needed for irritation. 200 each 2 4 Active hydrocortisone (Proctosol HC) 2.5 % rectal cream Insert into the rectum if needed in the morning and at bedtime for hemorrhoids. 28 g 2 4 Active naproxen (Naprosyn) 500 MG tablet TAKE 1 TABLET (500 MG) BY MOUTH IN THE MORNING AND AT BEDTIME NEEDED FOR MILD PAIN 30 tablet 1 5 Active Diclofenac Sodium 1 % gel APPLY 2 G TOPICALLY IF NEEDED IN THE MORNING, AT NOON, IN THE EVENING, AND AT BEDTIME (PAIN). 100 g 3 5 Active cholecalciferol VITAMIN D (Vitamin D-3) 50 MCG (1999 UT) capsuleIndicatio ns:Vitamin D deficiency TAKE 1 CAPSULE BY MOUTH EVERY DAY 90 capsule 1 5 Active hydroCHLOROthiaz carmella 12.5 MG tabletIndication s:Hypertension, unspecified type TAKE 1 TABLET BY MOUTH EVERY DAY IN THE MORNING 90 tablet 5 Active lisinopril 5 MG tabletIndication s:Hypertension, unspecified type Take 1 tablet by mouth every day 90 tablet 5 Active Active Problems Problem Noted Date Diagnosed Date [...] -re-referred for pelvic US -consider eval w/ FIELD MACHINIST -advised contact C if sx change or worsen BMI 39.0-39.9,adult [...] urine microalbumin wnl FEB 2020 -referred to [facility] optho for eval Resolved Problems Problem Noted Date Diagnosed Date Resolved Date Dizziness 07/26/2023 08/02/2023 Chronic pelvic pain in female 04/04/2018 04/16/2022 Morbid obesity 04/30/2015 08/02/2023 Encounters Date Type Department Care Team Description 10/11/2024 Refill [facility] MEDICINE [address] [place] [address] Charity Avila DO Hypertension, unspecified type from Last 3 Months Immunizations Immunization Administration Dates Next Due Influenza injectable quadriv [...] 71 08/02/2023 12:26 PM EDT Temperature 36.4 C (97.6 F) 08/02/2023 12:26 PM EDT Respiratory Rate 17 08/02/2023 12:26 PM EDT [...] 1975 FIT 1976 FOBT 1975 Sigmoidoscopy 1975 Disability Screening 1976 Alcohol/Substance Use Screening 1988 Family Planning (PISQ) 08/19/1991 Hepatitis B Vaccines (1 of 3 - 19+ 3-dose series) 08/19/1995 Depression Monitoring 12/03/2023 06/02/2023, 024 COVID-19 Vaccine ( season) 2024 04/10/2021, 10/23/2020, 09/25/2020 Influenza Vaccine (#1) 2024 , 02/12/2013, 12/22/2011, Additional history exists SDOH Screening 01/04/2025 01/05/2024 Mammogram 01/19/2025 01/19/2023, 07/30/2020 Tobacco Screening 02/08/2025 02/09/2024 Zoster Vaccines (1 of 2) 2026 Cervical Cancer Screening 10/30/2026 HPV/Cotest 10/30/2026 10/30/2021 Pap Smear 10/30/2026 10/30/2021 Lipid Panel 12/16/2027 12/15/2022, 10/06, [...] patient's age to complete this topic Meningococcal B Vaccine Aged Out No l onger eligible based on patient's age to complete this topic Meningococcal Vaccine Aged Out No consuelo katlyn eligible based on patient's age to complete this topic Pneumococcal Vaccine: Pediatrics (0 to 5 Years) and At-Risk Patients (6 to 49) Years Aged Out No longer eligible based on [...] PM EST Narrative 02/04/2023 8:30 AM EST [facility] [address] [place] [address] Mammography Report Signed Patient: Martha Novoa MR#: [id number] 134 : 1975 Acct:[id number] Age/Sex: 47 / F ADM Date: 01/19/23 Loc: HO.MAMMO Attending Dr: Charity Avila DO Ordering Physician: Charity Avila DO Results: 1N egative Date of Service: 01/19/23 Follow Up: 1 Year From Orig inal Mammogram Procedure(s): MM tomosynthesis screening BI Accession Number(s): [id number] cc: Charity Avila DO EXAMINATION: MM SCREENING DIGITAL BREAST TOMOSYNTHESIS, BILATERAL CLINICAL INFORMATION: Screening. Asymptomatic. COMPARISON: Mammography: This study is compared with prior exams dating back to 2015. TECHNIQUE: Digital breast tomosynthesis is performed in [...] in OV> 02/04/23 0827 DD/ 1440 TD/TT: Form Building Supervisor: Procedure Note Donotuseinterpreter, Image - 02/04/2023 [facility] [address] [place], [place] [address] Mammography Report Signed Patient: Martha Novoa EMR#: [id number] 134 : 1975Acct:[id number] Age/Sex: 47 / FADM Date: 01/19/23 Loc: ZACH Attending Dr: Charity Avila DO Ordering Physician: Charity Avila DOResults: 1N egative Date of Service: 01/19/23Follow Up: 1 Year From Orig inal Mammogram Procedure(s): MM tomosynthesis screening BI Accession Number(s): [id number] cc: Charity Avila DO EXAMINATION: MM SCREENING DIGITAL BREAST TOMOSYNTHESIS, BILATERAL CLINICAL INFORMATION: Screening. Asymptomatic. COMPARISON: Mammography: This study is compared with prior exams dating back to 2015. TECHNIQUE: Digital breast tomosynthesis is performed in [...] signed by Sharmila Jacobo MD in OV> 02/04/2327 DD/ 1440 TD/TT: Form Building Supervisor: us Charity Avila DO IMG BI PROCEDURES Final Resu lt * HIV Ab/Ag ([facility]) (12/15/2022 12:57 PM EDT) HIV AB/AG Nonreactive Nonreactive [facility] Comment:HIV-1 p24 Ag and/or HIV-1/HIV-2 Ab not detected.A test result that is nonreactive does not exclude thepossibility of exposure to or infection with HIV-1 and/orHIV-2. Nonreactive results in this assay for individualswith prior exposure to HIV-1 and/or HIV-2 may be due toantigen and antibody levels that are below the limit ofdetection of this assay.The [employer] HIV Ag/Ab Combo assay result andsupplemental assay results should be interpreted inconjunction with the patient's clinical presentation,history and other laboratory results. If the results areinconsistent with clinical evidence, additional testing issuggested to confirm the result. 12/15/2022 12:5 7 PM EDT 12/15/2022 3:58 PM EDT us Charity Avila DO LAB BLOOD ORDERABLES Final R esult Performing Organization Address [facility]/ZIP Co de Phone Number [facility] [address] [place] [address] [phone] * Hepatitis C Antibody with Reflex to HCV, RNA, Quantitative, Real-Time PCR (12/15/2022 12:57 PM EDT) Hepatitis C Antibody Nonreactive Nonreactive [facility] Comment:Antibodies to HCV no t detected; does not exclude early acuteHCV infection. 12/15/2022 12:5 7 PM EDT 12/15/2022 3:58 PM EDT Charity Avila DO LAB BLOOD ORDERABLES Final R esult Performing Organization Address [facility] Co de Phone Number [facility] [address] [place] [address] [phone] * Lipid Panel, Standard (12/15/2022 12:57 PM EDT) Triglycerides 91 <150 mg/dL [facility] Comment:Desirable Triglyceri de: less than 150 mg/dLBorderline High Triglyceride 150-199 mg/dLHigh Triglyceride: 200-499 mg/dLVery High Triglyceride: greater than or equal to 5OO mg/dL Cholesterol 172 <200 mg/dL [facility] Comment:Desirable Cholestero l: less than 200 mg/dLBorderline High Cholesterol: 200-239 mg/dLHigh Cholesterol: greater than 239 mg/dL LDL Cholesterol Calculated 99 <100 mg/dL [facility] Comment:Desirable LDL: less than 100 mg/dLNear Optimal/Above Optimal LDL: 110- 129 mg/dLBorderline High LDL: 130-159 mg/dLHigh LDL: 160-189 mg/dLVery High LDL: greater than or equal to 190 mg/dL HDL Cholesterol 55 >40 mg/dL [facility] Comment:Desirable HDL: great er than 40 mg/dL Note: This HDL assay may give artificially low results in patients with liver disease. Blood Venous blood specimen / Unknown 12/15/2022 12:57 PM EDT 12/15/2022 3:58 PM EDT us Charity Avila DO LAB BLOOD ORDERABLES Final R esult Performing Organization Address [facility] Co de Phone Number [facility] [address] [place] [address] [phone] * THINPREP TIS PAP (10/30/2021 9:58 AM EDT) Clinical Information: None given [facility] COMMENT SEE COMMENT [facility] Comment: EXPLANATORY NOTE: The Pap is a screening test for cervical cancer. It is not a diagnostic test and is subject to false negative and false positive results. It is most reliable when a satisfactory sample, regularly obtained, is submitted with relevant clinical findings and history, and when the Pap result is evaluated along with historic and current clinical information. COMMENT: This Pap test has been evaluated with computer assisted technology. [employer] [facility] Dietitian Therapeutic : SEE COMMENT [facility] Comment: [facility], CT(ASCP) CT screening location: [place] [address] Infection Shift in vaginal esthela suggestive of bacterial vaginosis. [facility] [facility] Interpretation/R esult: Negative for intraepithelial lesion or malignancy. [employer] [facility] LMP: NONE GIVEN [facility]OUND[facility] N [...] ORDERABLES Fin al Result Performing Organization Address City/[facility]/ZIP Co de Phone Number [employer] [facility] [address] * HPV mRNA E6/E7 REFLEX TO HPV 16, 18/45 (10/30/2021 9:58 AM EDT) HPV nRNA E6/E7 Not Detected Not Detected [facility] Comment: Methodology: Paver Installer-Mediated Amplification This assay detects E6/E7 viral messenger RNA (mRNA) from 14 high-risk HPV types (16,18,31,33,35,39,45,51,52,56,58,59,66,68). Cervical sources are required for HPV testing. If a vaginal source from a patient who has had a total hysterectomy with removal of cervix was submitted, please contact the testing laboratory for alternative testing options. For additional information, please refer to http://education.[employer]/faq/BQT319e1 (This link if provided for information/ educational purposes only.) 10/30/2021 9:58 AM EDT us Charity Avila DO LAB CYTOLOGY ORDERABLES Vibha orellana Result [facility] [address] from Last 3 Months or Most Recently Relevant to Health Maintenance Insurance [facility] , [address] [place] [address] Care Teams Sizer Hand Relationship Specialty Start Date End Date Charity Avila DO [address] [place] [address] PCP - General Family Medicine 03/07/18
== END 2024-11-29 15:14 | disposition home or self-care (01) ==
LOC: HO.HOS 14:49
PROVIDERS: PCP Family Medicine; Visit Provider Orthopaedic Surgery
DX: M17.0 Bilateral primary osteoarthritis of knee (principal)
CPT/HCPCS: 20610; 99213

== ENCOUNTER → 2024-11-29 14:49 | Outpatient (BNVA) | payer OTHER, SELFPAY | PROVIDERS: PCP Family Medicine; Visit Provider Orthopaedic Surgery | DX: M17.0 Bilateral primary osteoarthritis of knee (principal) | CPT/HCPCS: 20610; J2003; J7323 ==

== ENCOUNTER 2024-12-06 14:43 | Outpatient (AMB) | payer OTHER, SELFPAY ==
[2024-12-06 14:50] VITALS: BMI 41.1
--- NOTE | 2024-12-06 14:50 | A.OFFVIS_ITS ---
Vital Signs 12/06/24 14:50 Height 5 ft 2 in Weight 225 lb BMI 41.1 Intake Visit Reasons: Bilateral Knee Euflexxa #2 Intake Note: Martha, 49 years old, presents with bilateral knee pains due to osteoarthritis. She is here today for her 2nd Euflexxa injections in the bilateral knees. She states that she has gotten mild relief from the 1st set of injections. She continues with her home exercise program. 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, 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 Physical Exam Vital Signs: BMI result Body Mass Index 41.1 Extrem Other: Bilateral knee examination shows minimal effusions, palpable crepitus with range of motion, pain with range of motion, no instability Office Procedures AMB Joint Injection/Aspiration Joint Injection/Aspiration Primary Site: right knee Prep: site was prepped using aseptic technique Injected: 20 mg of (Euflexxa viscosupplementation) and 1% plain lidocaine Coding 31769 - Large joint Procedure code (CPT) selection complete AMB Joint Injection/Aspiration Joint Injection/Aspiration Primary Site: left knee Prep: site was prepped using aseptic technique Injected: 20 mg of (Euflexxa viscosupplementation) and 1% plain lidocaine Procedure: The patient tolerated the procedure well Coding 83434 - Large joint Procedure code (CPT) selection complete Assessment & Plan Assessment & Plan (1) Osteoarthritis of left knee: Code(s): M17.12 - Unilateral primary osteoarthritis, left knee Category: Medical (2) Osteoarthritis of right knee: Code(s): M17.11 - Unilateral primary osteoarthritis, right knee Category: Medical Plan Martha presents with bilateral knee pains due to osteoarthritis. The risks and benefits of a 2nd set of Euflexxa injections were discussed at length with the patient. The patient wished to proceed. She tolerated the injections well. She will continue with her home exercise program. She will follow up next week as scheduled. Feel free to call me at any time should questions regarding her orthopedic management arise. Orders: Orders AMB Joint Injection/Aspiration Today M17.11 - Unilateral primary osteoarthritis, right knee AMB Joint Injection/Aspiration Today M17.12 - Unilateral primary osteoarthritis, left knee Coding Level of Care Code Procedure Only Diagnoses Osteoarthritis of left knee M17.12 Osteoarthritis of right knee M17.11 CPT Codes Coding - 76936 Large joint: 88423 - Large joint ([id number]) Coding - 19703 Large joint: 94070 - Large joint ([id number])
--- OUTSIDE RECORDS SUMMARY | 2024-12-06 16:15 | XMS_ITS | Encounter Summary ---
Author Organization [employer] Address [address] [place] [address] 7t [place] [address] Care Team Providers Care Mechanical Product Engineer Name Role Phone Charity Avila DO Primary Care Provider Reason for Visit * Reason Onset Date Comments Med Refill 12/10/2022 Encounter Details Date Type Department Care Team (Late st Contact Info) Description 12/10/2022 Refill [facility] MEDICINE [address] [place] [address] Jeannie Gregory MD [address] [place] [address] Hypertension, unspecified type Social History Tobacco Use [...] documented as of this encounter Care Teams Mechanical Product Engineer Relationship Specialty Start Date End Date Charity Avila DO [address] [place] [phone] PCP - General Family Medicine 03/07/18 documented as of this encounter
--- OUTSIDE RECORDS SUMMARY | 2024-12-06 16:15 | XMS_ITS | Clinical Summary ---
Author Organization [employer] Address [address] [facility] 7t [place] [address] Care Team Providers Care Material Handling Warehouse Supervisor Name Role Phone Charity Avila Primary Care [...] -re-referred for pelvic US -consider eval w/ BIOFU[employer]S PRODUCTION ASSOCIATE -advised contact C if sx change or [...] urine microalbumin wnl FEB 2020 -referred to [facility] optho for eval Resolved Problems Problem Noted Date Diagnosed Date Resolved Date Dizziness 07/26/2023 08/02/2023 Chronic pelvic pain in female 04/04/2018 04/16/2022 Morbid obesity (CMS/HCC) 04/30/2015 Encounters Date Type Department Care Team Description 10/11/2024 Refill [facility] MEDICINE [address] [place] [address] Charity Avila DO Hypertension, unspecified type from [...] the past 12 months, has t he [employer], gas, oil or water company threatened to [...] PM EST Narrative 02/04/2023 8:30 AM EST [facility] [address] [place], [place] [address] Mammography Report Signed Patient: Martha Novoa MR#: [id number] 134 : 1975 Acct:[id number] Age/Sex: 47 / F ADM Date: 01/19/23 Loc: HOHumbertoMAMMO Attending Dr: Charity Avila DO Ordering Physician: Charity Avila DO Results: 1N egative Date of Service: 01/19/23 Follow Up: 1 Year From Orig inal Mammogram Procedure(s): MM tomosynthesis screening BI Accession Number(s): [id number] cc: Charity Avila DO EXAMINATION: MM SCREENING [...] in OV> 02/04/23 0827 DD/ 1440 TD/TT: Hand Deicer Element Winder: Procedure Note Donotuseinterpreter, Image - 02/04/2023 [facility] [address] [place], [place] [address] Mammography Report Signed Patient: Martha Novoa EMR#: [id number] 134 : 1975Acct:[id number] Age/Sex: 47 / FADM Date: 01/19/23 Loc: ZACH Attending Dr: Charity Avila DO Ordering Physician: Charity Avilaults: 1N egative Date of Service: 01/19/23Follow Up: 1 Year From Orig inal Mammogram Procedure(s): MM tomosynthesis screening BI Accession Number(s): [id number] cc: Charity Avila DO EXAMINATION: MM SCREENING [...] in OV> 02/04/23 0827 DD/ 1440 TD/TT: Hand Deicer Element Winder: us Charity Avila DO IMG BI PROCEDURES Final Resu lt * HIV Ab/Ag ([facility]) (12/15/2022 12:57 PM EDT) HIV AB/AG Nonreactive Nonreactive [facility] Comment:HIV-1 p24 Ag and/or HIV-1/HIV-2 Ab not detected.A test result that is nonreactive does not exclude thepossibility of exposure to or infection with HIV-1 and/orHIV-2. Nonreactive results in this assay for individualswith prior exposure to HIV-1 and/or HIV-2 may be due toantigen and antibody levels that are below the limit ofdetection of this assay.The [employer] HIV Ag/Ab Combo assay result andsupplemental assay results should be interpreted inconjunction with the patient's clinical presentation,history and other laboratory results. If the results areinconsistent with clinical evidence, additional testing issuggested to confirm the result. 12/15/2022 12:5 7 PM EDT 12/15/2022 3:58 PM EDT us Charity Jurcsak DO LAB BLOOD ORDERABLES Final R esult Performing Organization Address [facility]/ZIP Co de Phone Number [facility] [address] [place] [address] [phone] * Hepatitis C Antibody with Reflex to HCV, RNA, Quantitative, Real-Time PCR (12/15/2022 12:57 PM EDT) Hepatitis C Antibody Nonreactive Nonreactive [facility] Comment:Antibodies to HCV no t detected; does not exclude early acuteHCV infection. 12/15/2022 12:5 7 PM EDT 12/15/2022 3:58 PM EDT Charity Avila DO LAB BLOOD ORDERABLES Final R esult Performing Organization Address [facility] Co de Phone Number [facility] [address] [place] [address] [phone] * Lipid Panel, Standard (12/15/2022 12:57 PM EDT) Triglycerides 91 <150 mg/dL [facility] Comment:Desirable Triglyceri de: less than 150 mg/dLBorderline High Triglyceride 150-199 mg/dLHigh Triglyceride: 200-499 mg/dLVery High Triglyceride: greater than or equal to 5OO mg/dL Cholesterol 172 <200 mg/dL [facility] Comment:Desirable Cholestero l: less than 200 mg/dLBorderline High Cholesterol: 200-239 mg/dLHigh Cholesterol: greater than 239 mg/dL LDL Cholesterol Calculated 99 <100 mg/dL [facility] Comment:Desirable LDL: less than 100 mg/dLNear Optimal/Above Optimal LDL: 110- 129 mg/dLBorderline High LDL: 130-159 mg/dLHigh LDL: 160-189 mg/dLVery High LDL: greater than or equal to 190 mg/dL HDL Cholesterol 55 >40 mg/dL [facility] Comment:Desirable HDL: great er than 40 mg/dL Note: This HDL assay may give artificially low results in patients with liver disease. Blood Venous blood specimen / Unknown 12/15/2022 12:57 PM EDT 12/15/2022 3:58 PM EDT Charity Avila DO LAB BLOOD ORDERABLES Final R esult Performing Organization Address [facility] Co de Phone Number [facility] [address] [place] [address] [phone] * THINPREP TIS PAP (10/30/2021 9:58 [...] has been evaluated with computer assisted technology. [facility] Hoisting Pile Driving Engineer : SEE COMMENT [facility] Comment: [facility], CT(ASCP) CT screening location: [place] [address] Infection Shift in vaginal esthela suggestive of bacterial vaginosis. [employer] Interpretation/R esult: Negative for intraepithelial lesion or malignancy. [employer] LMP: NONE GIVEN [facility] Prev. BX: NONE GIVEN [facility] Prev. PAP: NONE GIVEN [facility] SOURCE: None given [facility] Statement Of Adequacy: SEE COMMENT [employer] Comment: Satisfactory for evaluation. Endocervical/transformation zone component present. Age and/or menstrual status not provided 10/30/2021 9:58 AM EDT us Charity Avila DO LAB PATHOLOGY ORDERABLES Fin al Result Performing Organization Address City/[facility]/ZIP Co de Phone Number [facility] [address] [place] [id number] * HPV mRNA E6/E7 REFLEX TO HPV 16, 18/45 (10/30/2021 9:58 AM EDT) HPV nRNA E6/E7 Not Detected Not Detected [facility] Comment: Methodology: Tube Closing Machine Operator-Mediated Amplification This assay detects E6/E7 viral messenger RNA (mRNA) from 14 high-risk HPV types (16,18,31,33,35,39,45,51,52,56,58,59,66,68). Cervical sources are required for HPV testing. If a vaginal source from a patient who has had a total hysterectomy with removal of cervix was submitted, please contact the testing laboratory for alternative testing options. For additional information, please refer to http://education.[employer]/faq/GMR761w0 (This link if provided for information/ educational purposes only.) 10/30/2021 9:58 AM EDT us Charity Avila DO LAB CYTOLOGY ORDERABLES Vibha l Result [facility] [address] from Last 3 Months or Most Recently Relevant to Health Maintenance Insurance , [address] [place] [address] Care Teams Material Handling Warehouse Supervisor Relationship Specialty Start Date End Date Charity Avila DO [address] [place] [address] PCP - General Family Medicine 03/07/18
--- OUTSIDE RECORDS SUMMARY | 2024-12-06 16:15 | XMS_ITS | Encounter Summary ---
Author Organization [employer] Address [address] [facility] 7t [place] [address] Care Team Providers Care Gambreler Helper Name Role Phone Charity Avila DO Primary Care Provider [phone] Reason for Visit * Reason Comments Med Refill Encounter Details Date Type Department Care Team (Late st Contact Info) Description 08/29/2023 Refill [facility] MEDICINE [address] [place], [place] [phone] Charity Avila DO [address] [place], [place] [phone] Vitamin D deficiency Social History Tobacco Use [...] documented as of this encounter Care Teams Gambreler Helper Relationship Specialty Start Date End Date Charity Avila DO [address] [place] [phone] PCP - General Family Medicine 03/07/18 documented as of this encounter
--- OUTSIDE RECORDS SUMMARY | 2024-12-06 16:15 | XMS_ITS | Encounter Summary ---
Author Organization [employer] Address [address] [place] [address] [address] [place] [address] Care Team Providers Care Bead Builder Name Role Phone Charity Avila DO Primary Care Provider Reason for Visit * Reason Onset Date Comments Med Refill 12/10/2022 Encounter Details Date Type Department Care Team (Late st Contact Info) Description 12/10/2022 Refill [facility] [address] [place] [address] Jeannie Gregory MD [address] [place] [address] Hypertension, unspecified type Social History Tobacco Use [...] documented as of this encounter Care Teams Bead Builder Relationship Specialty Start Date End Date Charity Avila DO [address] [place] [id number] PCP - General Family Medicine 03/07/18 documented as of this encounter
== END 2024-12-06 15:15 | disposition home or self-care (01) ==
LOC: HO.HOS 14:43
PROVIDERS: PCP Family Medicine; Visit Provider Orthopaedic Surgery
DX: M17.0 Bilateral primary osteoarthritis of knee (principal)
CPT/HCPCS: 20610

== ENCOUNTER → 2024-12-06 14:43 | Outpatient (BNVA) | payer OTHER, SELFPAY | PROVIDERS: PCP Family Medicine; Visit Provider Orthopaedic Surgery | DX: M17.0 Bilateral primary osteoarthritis of knee (principal) | CPT/HCPCS: 20610; J2003; J7323 ==

== ENCOUNTER 2024-12-13 14:12 | Outpatient (AMB) | payer OTHER, SELFPAY ==
--- NOTE | 2024-12-13 14:28 | MHC.OFFVIS ---
Vital Signs 12/13/24 14:29 Height 5 ft 2 in Weight 225 lb BMI 41.1 Intake Visit Reasons: Bilateral Knee Euflexxa #3 Intake Note: Martha, 49 years old, presents with bilateral knee pains due to osteoarthritis. She is here today for her 3rd Euflexxa injections in the bilateral knees. She states that she has gotten mild relief from the 1st 2 sets of injections. She continues with her home exercise program. 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, 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 Physical Exam Vital Signs: BMI result Body Mass Index 41.1 Extrem Other: Bilateral knee examination shows minimal effusions, palpable crepitus with range of motion, pain with range of motion, no instability Office Procedures AMB Joint Injection/Aspiration Joint Injection/Aspiration Primary Site: left knee Prep: site was prepped using aseptic technique Injected: 20 mg of (Euflexxa viscosupplementation) and 1% plain lidocaine Procedure: The patient tolerated the procedure well Coding 87909 - Large joint Procedure code (CPT) selection complete AMB Joint Injection/Aspiration Joint Injection/Aspiration Primary Site: right knee Prep: site was prepped using aseptic technique Injected: 20 mg of (Euflexxa viscosupplementation) and 1% plain lidocaine Procedure: The patient tolerated the procedure well Coding 91228 - Large joint Procedure code (CPT) selection complete Assessment & Plan Assessment & Plan (1) Osteoarthritis of left knee: Code(s): M17.12 - Unilateral primary osteoarthritis, left knee Category: Medical (2) Osteoarthritis of right knee: Code(s): M17.11 - Unilateral primary osteoarthritis, right knee Category: Medical Plan Ms. Don Hernandez presents with bilateral knee pains due to osteoarthritis. The risks and benefits of a 3rd set of Euflexxa viscosupplementation injections were discussed at length with the patient. The patient wished to proceed. She tolerated the injections well. She will continue with her home exercise program. She will contact me prior to her follow-up appointment in 3 months should any questions or concerns arise. Feel free to call me at any time should questions regarding her orthopedic management arise. Orders: Orders AMB Joint Injection/Aspiration 12/13/24 M17.11 - Unilateral primary osteoarthritis, right knee AMB Joint Injection/Aspiration 12/13/24 M17.12 - Unilateral primary osteoarthritis, left knee Coding Level of Care Code Procedure Only Diagnoses Osteoarthritis of left knee M17.12 Osteoarthritis of right knee M17.11 CPT Codes Coding - 62554 Large joint: 82319 - Large joint ([id number]) Coding - 21762 Large joint: 82869 - Large joint ([id number])
[2024-12-13 14:29] VITALS: BMI 41.1
== END 2024-12-13 14:53 | disposition home or self-care (01) ==
LOC: HO.HOS 14:12
PROVIDERS: PCP Family Medicine; Visit Provider Orthopaedic Surgery
DX: M17.0 Bilateral primary osteoarthritis of knee (principal)
CPT/HCPCS: 20610

== ENCOUNTER → 2024-12-13 14:12 | Outpatient (BNVA) | payer OTHER, SELFPAY | PROVIDERS: PCP Family Medicine; Visit Provider Orthopaedic Surgery | DX: M17.0 Bilateral primary osteoarthritis of knee (principal) | CPT/HCPCS: 20610; J2003; J7323 ==